=== PATIENT | male | born 1960 | race Caucasian/White ===

== ENCOUNTER 2017-07-24 18:57 | Observation (INO) ==
[2017-07-24] MEDS ORDERED: Aspirin 81 MG TAB.CHEW PO ONE (18:59)
--- NOTE | 2017-07-24 19:02 | Emergency Department Note ---
Disposition Clinical Impression: Unstable angina pectoris, Atypical chest pain Disposition: Admitted As Inpatient Condition: Fair General Adult HPI - General Chief complaint: ED Chest Pain Stated complaint: Chest Pain Time Seen by Provider: 07/24/17 18:59 - Related Data Allergies Allergy/AdvReac Type Severity Reaction Status Date / Time No Known Allergies Allergy Verified 07/24/17 18:58 Course Vital Signs Temperature 98.3 F 07/24/17 18:59 Pulse Rate 81 07/24/17 18:59 Respiratory Rate 18 07/24/17 18:59 Blood Pressure 136/84 07/24/17 18:59 O2 Sat by Pulse Oximetry 99 07/24/17 18:59 Temperature 97.4 F L 07/24/17 22:22 Pulse Rate 65 07/24/17 22:22 Respiratory Rate 12 07/24/17 22:22 Blood Pressure 126/83 07/24/17 22:22 O2 Sat by Pulse Oximetry 96 07/24/17 22:22 Oxygen Delivery Oxygen Delivery Room Air Medical Decision Making - Lab Data Result diagrams: 07/24/17 19:07 07/24/17 19:07 Lab Results 07/24/17 07/24/17 07/24/17 Range/Units 19:07 19:07 19:07 WBC 9.7 (4.3-11.1) K/mcL RBC 4.70 (4.19-5.50) M/mcL Hgb 12.9 (12.9-16.9) g/dL Hct 39.9 (37.5-50.1) % MCV 84.9 (83.0-100.0) fL MCH 27.4 L (28.0-33.3) pg MCHC 32.3 (31.6-35.5) g/dL RDW 13.4 (11.5-14.5) % Plt Count 291 (140-400) K/mcL MPV 10.1 (9.4-12.4) fL Immature Gran % 0.6 (0-4) % Seg Neutrophils % 59.8 % Lymphocytes % 23.8 % Monocytes % 10.4 % Eosinophils % 4.7 % Basophils % 0.7 % Neutrophils # 5.8 (1.6-8.9) K/mcL Lymphocytes # 2.3 (0.6-4.6) K/mcL Monocytes # 1.0 (0.0-1.3) K/mcL Eosinophils # 0.5 (0.0-0.6) K/mcL Basophils # 0.1 (0.0-0.2) K/mcL PT 9.4 (9.4-12.1) Seconds INR 0.9 APTT 27.7 (26.0-36.0) Seconds D-Dimer < 215 (0-500) ng/mLFEU Sodium 137 (136-145) mEq/L Potassium 3.7 (3.5-4.5) mEq/L Chloride 106 (98-109) mEq/L Carbon Dioxide 23 (19-29) mEq/L BUN 10 (8-26) mg/dL Creatinine 0.81 (0.72-1.25) mg/dL Est GFR ( Amer) > 60 (> 60) Est GFR (Non-Af Amer) > 60 (> 60) BUN/Creatinine Ratio 12 (6-26) Glucose 123 H (70-99) mg/dL Calculated Osmolality 284 (280-300) Calcium 8.8 (8.6-10.8) mg/dL Total Bilirubin 0.6 (0.2-1.2) mg/dL Direct Bilirubin 0.2 (0.0-0.5) mg/dL Indirect Bilirubin 0.4 (0.0-1.2) mg/dL AST 23 (5-34) Units/L ALT 45 (0-55) Units/L Alkaline Phosphatase 128 H (38-126) Units/L Troponin I (0-0.03) ng/mL Serum Total Protein 7.0 (6.0-8.3) g/dL Albumin 3.4 L (3.5-5.0) g/dL Globulin 3.6 H (2.4-3.5) g/dL Albumin/Globulin Ratio 0.9 L (1.1-2.2) 07/24/17 Range/Units 19:07 WBC (4.3-11.1) K/mcL RBC (4.19-5.50) M/mcL Hgb (12.9-16.9) g/dL Hct (37.5-50.1) % MCV (83.0-100.0) fL MCH (28.0-33.3) pg MCHC (31.6-35.5) g/dL RDW (11.5-14.5) % Plt Count (140-400) K/mcL MPV (9.4-12.4) fL Immature Gran % (0-4) % Seg Neutrophils % % Lymphocytes % % Monocytes % % Eosinophils % % Basophils % % Neutrophils # (1.6-8.9) K/mcL Lymphocytes # (0.6-4.6) K/mcL Monocytes # (0.0-1.3) K/mcL Eosinophils # (0.0-0.6) K/mcL Basophils # (0.0-0.2) K/mcL PT (9.4-12.1) Seconds INR APTT (26.0-36.0) Seconds D-Dimer (0-500) ng/mLFEU Sodium (136-145) mEq/L Potassium (3.5-4.5) mEq/L Chloride (98-109) mEq/L Carbon Dioxide (19-29) mEq/L BUN (8-26) mg/dL Creatinine (0.72-1.25) mg/dL Est GFR ( Amer) (> 60) Est GFR (Non-Af Amer) (> 60) BUN/Creatinine Ratio (6-26) Glucose (70-99) mg/dL Calculated Osmolality (280-300) Calcium (8.6-10.8) mg/dL Total Bilirubin (0.2-1.2) mg/dL Direct Bilirubin (0.0-0.5) mg/dL Indirect Bilirubin (0.0-1.2) mg/dL AST (5-34) Units/L ALT (0-55) Units/L Alkaline Phosphatase (38-126) Units/L Troponin I 0.01 (0-0.03) ng/mL Serum Total Protein (6.0-8.3) g/dL Albumin (3.5-5.0) g/dL Globulin (2.4-3.5) g/dL Albumin/Globulin Ratio (1.1-2.2) Attestation Statement - Attestation Attestation: I examined this patient and my medical decision-making was reviewed with the Resident Physician. I agree with the documented findings, disposition and treatment plan as described except to the extent set forth below. [id number] time provided [facility] complaining of hemoptysis and chest discomfort. History of recent failed stress test at [facility]. He does not take blood thinners. Appears in no acute distress on exam
--- NOTE | 2017-07-24 19:12 | Emergency Department Note ---
Disposition Clinical Impression: Unstable angina pectoris, Atypical chest pain Disposition: Admitted As Inpatient Condition: Fair Forms: ED Satisfaction Letter Time of Disposition: 20:35 Chest Pain HPI - General Chief Complaint: ED Chest Pain Stated Complaint: Chest Pain Time Seen by Provider: 07/24/17 18:59 Source: patient, EMS Mode of arrival: EMS Limitations: no limitations Vital Signs Reviewed: Yes Nursing Notes Reviewed: Yes - History of Present Illness HPI Narrative: 57-year-old male presents to the emergency department complaining of chest pain , hemoptysis. Patient states chest pain has been going on for about 3 days. Located in the left side of the chest and radiating down his left arm. He has been nauseous and vomiting he has vomited 3 times today. He said he was sweaty right chest pain started having his pain and noticed more increase in sweating. Patient states he did have one episode of hemoptysis earlier today which made him come in. He said it was blood noticeably coming out of his mouth when he was coughing. Since he is short of breath as normal but is mainly due to chest pain. History of the chest pain as being 5 out of 10 dull aching in the left side of the chest. Patient states this never happened before. Patient was seen and was you approximate 2-3 weeks ago for chest pain he was hospitalized for 10 days they did do a stress test and he failed it and it was toxic about doing catheterization but they decided not to due to financial concerns as he was recently incarcerated. Patient is now gone now and he is at the [facility]. Patient states he is having no other complaints including headache, blurry vision, neck pain, back pain, and changes in urination changes in bowel movements, abdominal pain, pain or tingling in the arms or legs outside the left arm, generalized weakness, fevers. Severity scale (1-10): 6 - Related Data Allergies Allergy/AdvReac Type Severity Reaction Status Date / Time No Known Allergies Allergy Verified 07/24/17 18:58 Review of Systems: 10 point review of systems done and negative unless otherwise stated in history of present illness. All systems ED: reviewed and negative except as stated. Review of Systems: As Per HPI Chest Pain PMH - Past Medical History Medical history: Reports: cancer, hypertension, TIA Psychiatric history: Reports: no psych history - Social History Smoking Status: Former smoker Alcohol use: Reports: none Drug use: Reports: none Physical Exam - General Limitations: no limitations General appearance: alert, in no apparent distress - Head Head exam: atraumatic, normocephalic, normal inspection - Eye Eye exam: Present: normal appearance, PERRL, EOMI - ENT ENT exam: normal exam, normal oropharynx, mucous membranes moist - Neck Neck exam: Present: normal inspection, full ROM, trachea midline - Chest Chest inspection: Present: normal inspection, symmetric chest wall rise. Absent : tenderness - Respiratory Respiratory exam: Present: normal lung sounds bilaterally. Absent: respiratory distress, wheezes, accessory muscle use - Cardiovascular Cardiovascular exam: Present: regular rate, normal rhythm, normal heart sounds - Abdominal Exam Abdominal exam: Present: soft, Non-Tender, normal bowel sounds. Absent: tenderness, distention, guarding, rebound, rigidity - Extremities Exam Extremities exam: Present: normal inspection, full ROM. Absent: tenderness, pedal edema - Expanded Lower Extremity Exam Neurovascular/Tendon exam: Present: normal capillary refill. Absent: pulse deficit, motor deficit, sensory deficit, tendon deficit - Back Exam Back exam: Present: normal inspection, full ROM. Absent: tenderness, CVA tenderness (R), CVA tenderness (L) - Neurological Exam Neurological exam: Present: alert, oriented X3 - Skin Skin exam: Present: warm Course Course Narrative: 57-year-old male presents to the emergency department for chest pain shortness of breath and hemoptysis. Patient did taking nitroglycerin before arriving at the elbow of his pain but is sent came back. We will get basic chest pain labs occluding CBC, BMP, troponin, PT/INR, PTT, d-dimer, chest x-ray, EKG. We will give him nitroglycerin and aspirin. Patient okay at this point. Most likely disposition will be admission for further evaluation. Vital Signs Temperature 98.3 F 07/24/17 18:59 Pulse Rate 81 07/24/17 18:59 Respiratory Rate 18 07/24/17 18:59 Blood Pressure 136/84 07/24/17 18:59 O2 Sat by Pulse Oximetry 99 07/24/17 18:59 Temperature 98.3 F 07/24/17 18:59 Pulse Rate 84 07/24/17 20:27 Respiratory Rate 18 07/24/17 20:27 Blood Pressure 135/87 07/24/17 20:27 O2 Sat by Pulse Oximetry 98 07/24/17 20:27 Oxygen Delivery Oxygen Delivery Room Air Chest Pain - MDM Narrative Medical decision making narrative: 57-year-old male presents to the emergency department complaining of chest pain as well as 1 episode hemoptysis. We did do chest x-ray which is normal. We also did a d-dimer that was normal. Troponin was also normal. There is no other abnormal lab abnormalities. EKG had no acute changes. Patient was seen and was you approximately 2 weeks ago with a negative stress today did not catheterize him. Patient only has hypertension as his risk factors. Patient otherwise having no complaints. Nitroglycerin did help with his chest pain but it did not go away. We did give him 325 aspirin. This most likely is unstable angina he needs to be admitted for further evaluation and for a cardiology consult. Patient to get this plan. Patient was admitted to the hospital as I spoke with Dr. Fairbanks who agreed to admit the patient to their service. Patient is admitted in stable condition. Chest X-Ray 07/24/17 18:59 IMPRESSION: No acute process. D/ / Geo Erickson MD / Geo Erickson MD Interpreting Provider: Geo Erickson MD - Medical Records Medical records reviewed: Yes I reviewed the patient's medical records. - Lab Data Lab results reviewed: Yes I reviewed the patient's lab results. Result diagrams: 07/24/17 19:07 07/24/17 19:07 Lab Results 07/24/17 07/24/17 07/24/17 Range/Units 19:07 19:07 19:07 WBC 9.7 (4.3-11.1) K/mcL RBC 4.70 (4.19-5.50) M/mcL Hgb 12.9 (12.9-16.9) g/dL Hct 39.9 (37.5-50.1) % MCV 84.9 (83.0-100.0) fL MCH 27.4 L (28.0-33.3) pg MCHC 32.3 (31.6-35.5) g/dL RDW 13.4 (11.5-14.5) % Plt Count 291 (140-400) K/mcL MPV 10.1 (9.4-12.4) fL Immature Gran % 0.6 (0-4) % Seg Neutrophils % 59.8 % Lymphocytes % 23.8 % Monocytes % 10.4 % Eosinophils % 4.7 % Basophils % 0.7 % Neutrophils # 5.8 (1.6-8.9) K/mcL Lymphocytes # 2.3 (0.6-4.6) K/mcL Monocytes # 1.0 (0.0-1.3) K/mcL Eosinophils # 0.5 (0.0-0.6) K/mcL Basophils # 0.1 (0.0-0.2) K/mcL PT 9.4 (9.4-12.1) Seconds INR 0.9 APTT 27.7 (26.0-36.0) Seconds D-Dimer < 215 (0-500) ng/mLFEU Sodium 137 (136-145) mEq/L Potassium 3.7 (3.5-4.5) mEq/L Chloride 106 (98-109) mEq/L Carbon Dioxide 23 (19-29) mEq/L BUN 10 (8-26) mg/dL Creatinine 0.81 (0.72-1.25) mg/dL Est GFR ( Amer) > 60 (> 60) Est GFR (Non-Af Amer) > 60 (> 60) BUN/Creatinine Ratio 12 (6-26) Glucose 123 H (70-99) mg/dL Calculated Osmolality 284 (280-300) Calcium 8.8 (8.6-10.8) mg/dL Total Bilirubin 0.6 (0.2-1.2) mg/dL Direct Bilirubin 0.2 (0.0-0.5) mg/dL Indirect Bilirubin 0.4 (0.0-1.2) mg/dL AST 23 (5-34) Units/L ALT 45 (0-55) Units/L Alkaline Phosphatase 128 H (38-126) Units/L Troponin I (0-0.03) ng/mL Serum Total Protein 7.0 (6.0-8.3) g/dL Albumin 3.4 L (3.5-5.0) g/dL Globulin 3.6 H (2.4-3.5) g/dL Albumin/Globulin Ratio 0.9 L (1.1-2.2) 07/24/ Range/Units 19:07 WBC (4.3-11.1) K/mcL RBC (4.19-5.50) M/mcL Hgb (12.9-16.9) g/dL Hct (37.5-50.1) % MCV (83.0-100.0) fL MCH (28.0-33.3) pg MCHC (31.6-35.5) g/dL RDW (11.5-14.5) % Plt Count (140-400) K/mcL MPV (9.4-12.4) fL Immature Gran % (0-4) % Seg Neutrophils % % Lymphocytes % % Monocytes % % Eosinophils % % Basophils % % Neutrophils # (1.6-8.9) K/mcL Lymphocytes # (0.6-4.6) K/mcL Monocytes # (0.0-1.3) K/mcL Eosinophils # (0.0-0.6) K/mcL Basophils # (0.0-0.2) K/mcL PT (9.4-12.1) Seconds INR APTT (26.0-36.0) Seconds D-Dimer (0-500) ng/mLFEU Sodium (136-145) mEq/L Potassium (3.5-4.5) mEq/L Chloride (98-109) mEq/L Carbon Dioxide (19-29) mEq/L BUN (8-26) mg/dL Creatinine (0.72-1.25) mg/dL Est GFR ( Amer) (> 60) Est GFR (Non-Af Amer) (> 60) BUN/Creatinine Ratio (6-26) Glucose (70-99) mg/dL Calculated Osmolality (280-300) Calcium (8.6-10.8) mg/dL Total Bilirubin (0.2-1.2) mg/dL Direct Bilirubin (0.0-0.5) mg/dL Indirect Bilirubin (0.0-1.2) mg/dL AST (5-34) Units/L ALT (0-55) Units/L Alkaline Phosphatase (38-126) Units/L Troponin I 0.01 (0-0.03) ng/mL Serum Total Protein (6.0-8.3) g/dL Albumin (3.5-5.0) g/dL Globulin (2.4-3.5) g/dL Albumin/Globulin Ratio (1.1-2.2) - Radiology Data Radiology results reviewed: Yes I reviewed the patient's radiology results. - EKG Data EKG attestation: Yes I reviewed and interpreted this EKG. EKG results narrative: EKG done at 1850 review myself and attending shows normal sinus rhythm at a rate of 86, ME interval 174, QRS 108, QTc [address] changes, no acute T-wave abnormalities, no signs of any heart strain or hypertrophy, no signs of any heart block, no signs of WPW/Brugada syndrome. Otherwise normal EKG. There is no old EKG to compare with. Heart Score - Score History: Highly Suspicious EKG: Non Specific repolarisation Disturbance Age: 45-65 Risk Factors: 1-2 risk factors Troponin: Less than normal limit HEART Score Total: 5
[2017-07-24] MEDS: Nitroglycerin 0.4 MG TAB.SUBL SL PRN ×3 (19:17→19:45)
[2017-07-24 19:18] LABS: Hematocrit 39.9 % (37.5-50.1); Hemoglobin 12.9 g/dL (12.9-16.9); Mean Corpuscular Hemoglobin 27.4 pg (28.0-33.3); Mean Corpuscular Volume 84.9 fL (83.0-100.0)
[2017-07-24 19:19] LABS: Basophils # 0.1 K/mcL (0.0-0.2); Basophils % 0.7 %; Eosinophils # 0.5 K/mcL (0.0-0.6); Eosinophils % 4.7 %; Immature Granulocytes % 0.6 % (0-4); Lymphocytes # 2.3 K/mcL (0.6-4.6); Lymphocytes % 23.8 %; Mean Corpuscular HGB Conc 32.3 g/dL (31.6-35.5); Mean Platelet Volume 10.1 fL (9.4-12.4); Monocytes % 10.4 %; Neutrophils # 5.8 K/mcL (1.6-8.9); Platelet Count 291 K/mcL (140-400); Red Cell Distribution Width 13.4 % (11.5-14.5); Segmented Neutrophils % 59.8 %
[2017-07-24 19:24] LABS: INR 0.9; Prothrombin Time 9.4 Seconds (9.4-12.1)
[2017-07-24 19:27] LABS: Activated Partial Thrombo Time 27.7 Seconds (26.0-36.0)
[2017-07-24 19:30] LABS: Alanine Aminotransferase 45 Units/L (0-55); Albumin 3.4 g/dL (3.5-5.0); Albumin/Globulin Ratio 0.9 (1.1-2.2); Alkaline Phosphatase 128 Units/L (38-126); Aspartate Amino Transferase 23 Units/L (5-34); BUN/Creatinine Ratio 12 (6-26); Bilirubin,Direct 0.2 mg/dL (0.0-0.5); Bilirubin,Indirect 0.4 mg/dL (0.0-1.2); Bilirubin,Total 0.6 mg/dL (0.2-1.2); Blood Urea Nitrogen 10 mg/dL (8-26); Calcium 8.8 mg/dL (8.6-10.8); Carbon Dioxide 23 mEq/L (19-29); Chloride 106 mEq/L (98-109); Globulin 3.6 g/dL (2.4-3.5); Glucose 123 mg/dL (70-99); Osmolality,Calculated 284 (280-300); Potassium 3.7 mEq/L (3.5-4.5); Sodium 137 mEq/L (136-145); eGFR For African Americans > 60 (> 60); eGFR For Non-African Americans > 60 (> 60)
[2017-07-24 19:54] LABS: D-Dimer < 215 ng/mLFEU (0-500)
[2017-07-24] MEDS ORDERED: Naloxone 0.4 MG/ML INJ IVP PRN (22:43)
--- NOTE | 2017-07-24 22:50 | Internal Med History&Physical ---
Date of Encounter: 07/24/17 Time of Encounter: 22:50 Assessment and Plan (1) Atypical chest pain Current visit: Yes Status: Acute uncertain whether this is cardiac . Could be pleurisy given hx But due to hx of reported abnormal stress testing at [facility], will have card eval for cardiac etiology, trend trop, TTE in the morning (2) Abnormal stress test Current visit: Yes Status: Acute uncertain context and nature of abnormal stress. Unable to retrieve records from [facility]. Card to assist in eval and follow up (3) Hemoptysis, unspecified Current visit: Yes Status: Acute appears last 3-4 days, trend Hb Check NC-CT chest to characterize Internal Medicine - H&P: HPI Chief complaint: CP History of present illness: Mr. Montana is a 57 year old male who presents with CP eval. He is coming in with 3 days hx of CP, sharp, along the left sternum, associated with left arm numbness, rate 7-8/10. Pain persistent for the last 3 days. CP has no relation with exertion. Today, he almost blacked out after coughing spell. On review, he has been incarcerated and was admitted to [facility] for chest pain in February that had abnormal stress test - a LHC was discussed but was reported to be held due to cost ?? while he is incarcerated ??. Review noted 3-4 days hx of coughing out lisa blood w/o clots. He woke up with blood all over pillow He quite smoking 14 years ago. EKG reviewed with rate 86, NSR. Incomplete RBBB on read questionable ?? XR/XR chest 1V portable IMPRESSION: No acute process. Past Med Surg Social Fam HX - Past Medical History Medical history: cancer, hypertension, TIA Psychiatric history: no psych history - Past Surgical History Surgical History: no surgical history - Social History Smoking Status: Former smoker Packs per day: 3 Smokeless Tobacco Status: No Alcohol use: none Drug use: none - Family History Mother Adopted: No Living Status: Hx Family Cardiac Disorders: Yes (open heart surgery) Hx Family Cancer: Yes (lung) Internal Medicine - H&P: Meds 3 Allergy/AdvReac Type Severity Reaction Status Date / Time No Known Allergies Allergy Verified 07/24/17 18:58 All Systems PM: A 10-system review of systems was performed and is negative for pertinent findings except as documented above in the HPI. Review of systems: ROS 14 point review of systems reviewed as best as possible given presentation. Pertinent positive or negative as per HPI or otherwise reviewed as negative - Constitutional Vitals: Temp Pulse Resp BP Pulse Ox 97.4 F L 65 12 126/83 96 07/24/17 22:22 07/24/17 22:22 07/24/17 22:22 07/24/17 22:22 07/24/17 22:22 Exam: General - AAO x 3 Psych - Appropriate affect/speech. No agitation Eyes - TRACY. Eye lids intact. No scleral icterus Heart - Sinus. RRR. S1 and S2 present. No added HS/murmurs appreciated. No elevated JVD appreciated. Lung - Adequate air entry b/l, No crackles/wheezes appreciated GI - Soft, non-tender. No hepatosplenomegaly/ascites. BS+ - No CVA/suprapubic tenderness or palpable bladder distension Skin - Intact. No rash/petechiae/ecchymosis. Warm extremities MSK - Joints with normal ROM. No joint swellings Internal Med - H&P Results - Labs CBC & Chem 7: 07/24/17 19:07 07/24/17 19:07
[2017-07-25 01:04] LABS: Hematocrit 38.1 % (37.5-50.1); Hemoglobin 12.5 g/dL (12.9-16.9)
[2017-07-25] MEDS ORDERED: Aspirin 81 MG TAB.CHEW PO SCH (09:00)
--- NOTE | 2017-07-25 10:37 | Cardiology Consult Note ---
Date of Encounter: 07/25/17 Time of Encounter: 10:34 Assessment and Plan (1) Atypical chest pain Current Visit: Yes Status: Acute Abnormal stress test at [facility] in January 2017, records pending. Pt reports chest pressure at 3 minutes of exercise stress test, test stopped, no interventions performed then at [facility], pt states he did not follow-up to appointment with Health Information Coder afterwards. Neg trops x2, no ST changes on ECG. Plan: due to patient history of abnormal stress test, recurrent anginal symptoms , risk factors of heavy smoking in past, family history, plan is for left heart catheterization. Patient understands and is agreeable to procedure. Pt currently NPO. (2) Hemoptysis, unspecified Current Visit: Yes Status: Acute CT chest negative for identified source of bleed. Primary team trending H&H, negative d-dimer. Will proceed with [facility]. Discussion w patient/family: The assessment and plan as outlined above was discussed with the patient and/or family members who expressed understanding and agreement. All questions were answered. Thank you for involving us in the care of your patient. Please call with any questions. History of Present Illness Consult date: 07/25/17 Requesting physician: Austin Fairbanks Consult reason: Chest pain, Hx Abnormal Stress test [facility] Chief complaint: Chest pain History of present illness: Mr. Les Montana, 57M, somewhat limited historian, presents to ED with 4 days of hemoptysis and sharp left sternal chest pain with reported left arm numbness. Chronicity of chest pain has been intermittent over past year, occurring at times at rest. PMH, HTN, former [id number] yr smoker quit 14 years ago , last alcohol use 30 years ago, reported abnormal stress test at [facility] January 2017. He states he had chest discomfort at 3 minutes during incline, plan was to follow-up outpatient at [facility], pt lost to follow-up. 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 Hemoptysis workup: CXR normal, CT chest negative for acute finding of bleed source, negative d-dimer. Cardiology consulted for further evaluation of chest pain; negative trops x2, ECG shows no ST changes. Family history: Father age 49, mother 63, both according to patient of heart disease, unknown age of diagnosis. Past Med Surg Social Fam HX - Past Medical History Medical history: cancer, hypertension, TIA Psychiatric history: no psych history - Past Surgical History Surgical History: no surgical history - Social History Smoking Status: Former smoker Packs per day: 3 Smokeless Tobacco Status: No Alcohol use: none Drug use: none - Family History Mother Adopted: No Living Status: Hx Family Cardiac Disorders: Yes (open heart surgery) Hx Family Cancer: Yes (lung) Medications and Allergies Aspirin [Lo-Dose Aspirin EC] 81 mg PO DAILY 07/25/17 [History] Citalopram [CeleXA] 20 mg PO DAILY 07/25/17 [History] Metoprolol [Lopressor] 50 mg PO BID 07/25/17 [History] Mirtazapine [Remeron] 15 mg PO HS 07/25/17 [History] Nitroglycerin [Nitrostat] 0.4 mg SL Q5M PRN 07/25/17 [History] Simvastatin [Zocor] 20 mg PO HS 07/25/17 [History] 3 Allergy/AdvReac Type Severity Reaction Status Date / Time No Known Allergies Allergy Verified 07/24/17 18:58 All Systems Review: A 10-system review of systems was performed and is negative for pertinent findings except as documented above in the HPI. Physical Examination Vital Signs, Last 4 Hours Temp Pulse Resp BP Pulse Ox 07/25/17 07:33 97.4 F L 66 18 132/77 95 General: Conversant HEENT: Atraumatic, Normocephaly Neck: Other (no JVD, no bruit on carotid ausc) Cardiac: Reg Rate and Rhythm, Normal S1 and S2 Lungs: No Wheeze, Rales, Rhonchi Neuro: Other (intact sensation and movement upper, lower extremities) Musculoskeletal: No Chest Wall Tenderness Extremities: No Clubbing, No Cyanosis, No Edema Results 07/25/17 00:56 07/24/17 19:07 Lab Results 07/25/17 07/25/17 07/25/17 00:56 00:56 06:24 Hgb 12.5 L Hct 38.1 Troponin I 0.00 0.00 Consult Discharge Plan - Plan Referrals: NONE,PCP [Primary Care Provider] -
[2017-07-25] MEDS: Nitroglycerin 0.4 MG TAB.SUBL SL PRN ×2 (10:54→10:59)
[2017-07-25] MEDS ORDERED: Heparin 1,000 UNITS/500 mL NS 500 ML ONE (15:01)
[2017-07-25] MEDS ORDERED: 0.9 % Sodium Chloride 1,000 ML ONE (15:01)
[2017-07-25] MEDS ORDERED: *HR* Heparin 10,000 UNIT/10 ML VIAL ONE (15:01)
[2017-07-25] MEDS ORDERED: Nitroglycerin 1,000 MCG/10 ML VIAL IV ONE (15:02)
--- NOTE | 2017-07-25 15:04 | Internal Med Progress Note ---
Date of Encounter: 07/25/17 Time of Encounter: 10:30 - Assessment and plan (1) CAD (coronary artery disease) Current Visit: Yes Status: Acute Assessment and plan: Patient reports abnormal stress test at [facility] 02/2017. Now with chest pain that occurs at rest. Evaluated by cardiology whose plane left heart catheterization. Continue ASA, 80 morphine for pain. TTE pending. Further management pending her course. Cardiology following. Qualifiers: Coronary Disease-Associated Artery/Lesion type: ken[place]ze artery [place] vs. transplanted heart: kenaitze heart Associated angina: with unstable angina Qualified Code(s): I25.110 - Atherosclerotic heart disease of kenaitze coronary artery with unstable angina pectoris (2) COPD (chronic obstructive pulmonary disease) Current Visit: Yes Status: Acute Assessment and plan: per hx. no evidence of exacerbation. Add PRN nebulizers. Qualifiers: COPD type: emphysema Emphysema type: unspecified Qualified Code(s): J43.9 - Emphysema, unspecified (3) Hemoptysis, unspecified Current Visit: Yes Status: Acute Assessment and plan: Patient reports significant hemoptysis for the last 2-3 weeks. Not visualized by staff Hgb 12.5. We will need to further investigate, consult pulmonology if needed. (4) Aortic aneurysm Current Visit: Yes Status: Acute Assessment and plan: Chest CTA with 4 cm mild ascending aortic aneurysm, no evidence of dissection. Asymptomatic. Will need to follow up outpatient with repeat imaging. Qualifiers: Aortic location: abdominal aorta Presence of rupture: without rupture Qualified Code(s): I71.4 - Abdominal aortic aneurysm, without rupture - Time Spent With Patient less than 15 minutes - Subjective Interval history: Seen and examined at bedside. Patient is new to me, information obtained from chart review and patient report. Patient still with subtle left chest pain that radiates to left arm. Intermittent shortness of breath. He reports hemoptysis for the past 2-3 weeks, former smoker. Chest cardiology is proceeding with left heart catheterization later on today. - Constitutional Vitals: Temp Pulse Resp BP Pulse Ox 97.9 F 62 18 122/79 96 07/25/17 11:48 07/25/17 11:48 07/25/17 11:48 07/25/17 11:48 07/25/17 11:48 General appearance: Present: A&O X 3, no acute distress - Head Head exam: Present: atraumatic, normocephalic - Eye Eye exam: Present: PERRL, conjuntiva pink, sclera anicteric Pupils: Present: PERRL - Neck Neck exam general surgery: Present: supple, trachea midline. Absent: lymphadenopathy - Respiratory Respiratory exam: Present: CTAB. Absent: accessory muscle use, rales, rhonchi, wheezes - Cardiovascular Cardiovascular exam: Present: RRR, +S1, +S2. Absent: diastolic murmur, gallop, rubs, systolic murmur - GI/Abdominal GI/Abdominal exam: Present: normal bowel sounds, soft, no peritoneal signs. Absent: distended, tenderness - Extremities Exam Extremities exam: Present: warm, radial pulses palpable and symmetrical. Absent : calf tenderness, cyanotic, pedal edema - Neurological Exam Neurological exam: Present: CN II-XII intact, oriented X3, no focal deficits. Absent: pronater drift, facial droop, speech deficit - Skin Skin exam: Present: dry, intact Internal Medicine: Result - Labs CBC & Chem 7: 07/25/17 00:56 07/24/17 19:07 Labs: Short CBC 07/25/17 Range/Units 00:56 Hgb 12.5 L (12.9-16.9) g/dL Hct 38.1 (37.5-50.1) % Cardiac Enzymes 07/25/17 07/25/17 07/25/17 Range/Units 00:56 06:24 12:52 Troponin I 0.00 0.00 0.00 (0-0.03) ng/mL - ABG Interpretation ABG results: PT/INR, D-dimer PT 9.4 Seconds (9.4-12.1) 07/24/17 19:07 D-Dimer < 215 ng/mLFEU (0-500) 07/24/17 19:07 - Impressions Impressions Chest CT 07/25/17 08:30 IMPRESSION: 1. No CT explanation for the patient's presenting hemoptysis. 2. Mild pulmonary emphysema. 3. Indeterminate bilateral pulmonary nodules measuring up to 4 mm. Refer to Fleischner criteria follow-up. 4. Ascending aortic aneurysm up to 4.3 cm. RECOMMENDATIONS: Fleischner Society guidelines for follow-up and management of incidentally detected pulmonary nodules: Multiple Solid Nodules: Nodule size less than 6 mm In a low-risk patient, no routine follow-up. In a high-risk patient, optional CT at 12 months. - Low risk patients include individuals with minimal or absent history of smoking and other known risk factors. - High risk patients include individuals with a history or smoking or known risk factors. Radiology 2017 http://pubs.rsna.org/doi/full/10.1148/radiol.[email or web address] D/ / 07/25/2017 09:04:17 Irving Lockett MD / emil Interpreting Provider: Irving Lockett MD Chest CTA 07/25/17 10:51 IMPRESSION: No evidence of pulmonary embolism or acute pulmonary abnormality. Mild COPD Mild ascending aortic aneurysm measuring 4 cm 4 mm nodule within the left lower lobe involving the major fissure RECOMMENDATIONS: Fleischner Society guidelines for follow-up and management of incidentally detected pulmonary nodules: Single Solid Nodule: Nodule size less than 6 mm In a low-risk patient, no routine follow-up. In a high-risk patient, optional CT at 12 months. Nodule size equals 6-8 mm In a low-risk patient, CT at 6-12 months, then consider CT at 18-24 months. In a high-risk patient, CT at 6-12 months, then CT at 18-24 months. Nodule size greater than 8 mm In a low-risk patient, consider CT, PET/CT, or tissue sampling at 3 months. In a high-risk patient, consider CT, PET/CT, or tissue sampling at 3 months. Multiple Solid Nodules: Nodule size less than 6 mm In a low-risk patient, no routine follow-up. In a high-risk patient, optional CT at 12 months. Nodule size equals 6-8 mm In a low-risk patient, CT at 3-6 months, then consider CT at 18-24 months. In a high-risk patient, CT at 3-6 months, then CT at 18-24 months. Nodule size greater than 8 mm In a low-risk patient, CT at 3-6 months, then consider CT at 18-24 months. In a high-risk patient, CT at 3-6 months, then CT at 18-24 months. - Low risk patients include individuals with minimal or absent history of smoking and other known risk factors. - High risk patients include individuals with a history or smoking or known risk factors. Radiology 2017 http://pubs.rsna.org/doi/full/10.1148/radiol.0236071092 D/ / Yonas Block MD / Yonas Block MD Interpreting Provider: Yonas Block MD Echocardiogram 07/25/17 22:49 Impressions: LVEF 60%. Mild left ventricular diastolic dysfunction. Normal right ventricular structure and function. No significant valvular dysfunction. No pulmonary hypertension. Left Ventricular Wall Motion: Rest Echo Findings All wall segments showed normal motion. Findings: Study Quality * Technically adequate exam. ECG Findings * Normal sinus rhythm. Left Ventricle * LVEF 60%. * Normal LV chamber size, wall thickness and function. * Mild left ventricular diastolic dysfunction. Right Ventricle * Normal right ventricular structure and function. Left Atrium * Normal left atrial size. Right Atrium * Normal right atrial size. Aortic Valve * No aortic regurgitation. * No aortic stenosis. * Trileaflet aortic valve. Mitral Valve * Normal mitral valve structure. * No mitral stenosis. * Trace mitral regurgitation. Tricuspid Valve * Tricuspid valve not well visualized. * Trace tricuspid regurgitation. * Estimated RA pressure is 3 mmHg. * Estimated RVSP is 25 mmHg. * No pulmonary hypertension. Pulmonic Valve * Pulmonic valve is not well visualized. * No pulmonic stenosis. * No pulmonic regurgitation. Pulmonary Artery * Pulmonary artery not well visualized. Aorta * Normally sized aortic root. Pericardium * There is no pericardial effusion present. Interatrial Septum * No evidence of PFO by color Doppler. IVC * Normal IVC dimensions and inspiratory collapse. Consult Discharge Plan - Plan Referrals: NONE,PCP [Primary Care Provider] -
[2017-07-25] MEDS ORDERED: *HR* Midazolam HCl 5 MG/5 ML VIAL IVP ONE (15:22)
--- NOTE | 2017-07-25 15:24 | Pre-Sedation Evaluation ---
Pre-sedation evaluation - Pre-sedation checklist Date of procedure: 07/25/17 Procedure: [facility] Recent Vitals: Last Vital Signs Temp 97.9 F 07/25/17 11:48 Pulse 62 07/25/17 11:48 Resp 18 07/25/17 11:48 BP 122/79 07/25/17 11:48 Pulse Ox 96 07/25/17 11:48 H&P (including ROS) documented in medical record: Yes Previous reaction to sedatives/anesthetics: No Dietary Status: NPO after Midnight Airway Assessment: Patient can open mouth completely, TMJ function normal Dentition: No loose teeth or bridges Possible difficult airway: No ASA Classification *see protocol: CLASS III-Severe systemic disease Plan of Care: Pt appropriate candidate for procedure/moderate/conscious sedation , Risks/benefits of procedure/sedation discussed w/ patient/family, If not NPO; Risk of intake outweiged by necessity to perform procedure
[2017-07-25] MEDS ORDERED: 0.9 % Sodium Chloride 1,000 ML IVC SCH (16:00)
--- NOTE | 2017-07-25 16:16 | Invasive Diagnostic Lab Proc ---
Name: Les [place] Date of Study: 07/25/2017 Date: 1960 Ht: 71.0in Medical Record#: [id number] Age: 57 Wt: 196.21lb Gender: Male BSA: 2.09 Order #: [id number] BMI: 27.38 Physicians Procedure Physician: Lacho Odonnell DO Referring MD: Referring MD: Staff Name Position Time In Virgen Miller RN Neuropsychology Service Director 03:14 PM Steven Devine RT (R) Monitor 03:14 PM Jesús Griffith RN Scrub 03:14 PM Indications Indication Abnormal Test - Stress Procedures Performed Procedure L HRT ARTERY/VENTRICLE ANGIO Pre-Procedure Checklist Informed consent is complete signed and on chart. H&P is on chart. ID band is on and ID verified with patient. Patient NPO for procedure The procedure was described for the patient and questions were answered. Blood Pressure: 135/86 ECG is on chart. Rhythm: NSR Plan of Care Patient will tolerate the procedure without complications. Adequate level of comfort will be maintained. Hemodynamics will remain stable Patient will recover from procedure without complications. Respiratory function will be maintained. Cardiac rhythm will remain stable. Patient temperature will be maintained. Patient and/or family have verbalized understanding of the procedure. Patient Education Chief Complaint/Reason for Test: Cardiac Cath Developmental Category: Adult (18-64 years) Developmentally Appropriate for Age: Yes Learning Barriers: None Education Needs: Procedure Education Method: Verbal Information Taught: Cardiac Cath Educational Evaluation: Able to repeat information Intravenous Access Time IV Size Location DC'd Fluid/Drip Rate Units RN 03:18 PM 20g 1 1/" Patent On Arrival Lt Antecubital 0.9NaCl 25 ml/hr Virgen Miller RN Allergies No Known Allergies Vital Signs Time BP (mmHg) HR (bpm) O2 Sat. RR (bpm) LOC 03:17 PM 135 / 86 69 100 % 20 5 = Fully awake and oriented or at pre-proc level 03:18 PM / % 5 = Fully awake and oriented or at pre-proc level 03:33 PM / % 5 = Fully awake and oriented or at pre-proc level 03:48 PM / % 5 = Fully awake and oriented or at pre-proc level 03:26 PM 135 / 86 68 100 % 17 03:31 PM 127 / 93 75 99 % 15 03:36 PM 129 / 88 74 99 % 19 03:41 PM 96 / 68 73 99 % 19 03:47 PM 120 / 82 72 99 % 14 03:51 PM 120 / 92 74 100 % 19 03:56 PM 120 / 92 72 100 % 22 04:01 PM 126 / 84 72 100 % 16 04:06 PM 116 / 86 81 100 % 8 Procedural Medications Time Medication Dose Units Method Given By 03:27 PM Versed 2 mg Intravenous Virgen Miller RN 03:29 PM Oxygen 2 L/min nasal cannula Virgen Miller RN 03:34 PM Versed 1 mg Intravenous Virgen Miller RN 03:37 PM Lidocaine 2% 9 ml Subcutaneous Lacho Odonnell DO ASA Classification: CLASS III- Severe systemic disease (i.e. prior AMI, diabetes with vascular complications, morbid obesity) Funmilayo Score Preprocedure Postprocedure Activity 2- Moves 4 extremities sustained head lift Activity Circulation 2- SBP +/= 20 points of pre-anesthetic level Circulation Consciousness 2- Awake and alert oriented x 3 Consciousness O2 Saturation 2- Able to maintain O2 satruation of 92% on room air O2 Saturation Respiratory 2- Able to deep breathe and cough well Respiratory Total Score 10 Total Score Contrast Agent: Isovue Diagnostic Contrast: 40 ml Total Contrast: 40 ml Fluoro Dose: 167 mGy Procedure Log Time Note Enter By 03:14 PM Patient charges- Angio tray pack, Navilyst 3mm J, Pulse Oximetry and ACIST tubing and transducer [email or web address] 03:14 PM Virgen Miller RN Position: Neuropsychology Service Director Time in: 15:14 [email or web address] 03:14 PM Steven Devine RT (R) Position: Monitor Time in: 15:14 [email or web address] 03:14 PM Jesús Griffith RN Position: Scrub Time in: 15:14 [email or web address] 03:17 PM Pt arrived to medical lab tech instructor 2 at 15:17 [email or web address] 03:17 PM Time: 15:17 Patient comfortable and pain free: Yes [email or web address] 03:18 PM Time: 15:17LOC: 5 = Fully awake and oriented or at pre-proc level [email or web address] 03:18 PM CathStat 03:20 PM Physician arrived 15:20 [email or web address] 03:20 PM Meet and greet completed [email or web address] 03:20 PM Sign in performed according to hospital policy. [email or web address] 03:20 PM Procedure start 15:20 [email or web address] 03:20 PM ASA Class CLASS III- Severe systemic disease (i.e. prior AMI, diabetes with vascular complications, morbid obesity) 03:21 PM Case Delayed No 2 03:26 PM Vitals capture started with the following parameters, Patient=Adult, Interval=5 min, Initial Vjkksamk=621 mmHg, Deflation Rate=5 mmHg, Cuff placed on Right Arm 03:26 PM Recorded ECG: HR=69 Condition=Condition 1 03:26 PM HR=68 bpm, MQQC=948/86 mmhg, EuA4=282.0 %, Resp=17 B/min 03:28 PM Time: 15:27 Versed 2 mg Intravenous Given by Virgen Miller RN 03:29 PM Hair removed from procedure site in procedure lab using clippers. Bilateral groin prepped with Chloraprep by Steven Devine (R), safety strap applied then patient was draped. Skin intact. 03:29 PM Time: 15:29 Oxygen on at 2 L/min per nasal cannula by Virgen Miller RN 03:31 PM HR=75 bpm, ENGD=591/93 mmhg, SpO2=99.0 %, Resp=15 B/min, Comment=nsr 03:33 PM Time: 15:18LOC: 5 = Fully awake and oriented or at pre-proc level 03:33 PM Time: 15:17 Patient comfortable and pain free: Yes 03:35 PM Time: 15:34 Versed 1 mg Intravenous Given by Virgen Miller RN 03:35 PM Pressure channel 1 zeroed. 03:36 PM HR=74 bpm, OLVE=353/88 mmhg, SpO2=99.0 %, Resp=19 B/min, Comment=nsr 03:37 PM Time out performed according to hospital policy 03:37 PM Time: 15:37 9 ml Lidocaine 2% to right groin Subcutaneous Given by Lacho Odonnell DO 03:38 PM Micro-Introducer Kit utilized for sheath placement [email or web address] 03:40 PM Access obtained by percutaneous puncture. 6Fr 10cm Terumo [place] sheath placed in right Femoral artery. [id number] [email or web address] 03:40 PM 0.035 145cm Navilyst 3mmJ wire [id number] [email or web address] 03:40 PM 5Fr FR 4 [facility] PM Catheter selectively placed in left ventricle hand injected [email or web address] 03:41 PM Recorded Pressure: LV, HR=86, Condition=Condition 1 (Left Ventricle) LV 20/2/2 03:41 PM Recorded Pressure: LV, Ao, HR=67, Condition=Condition 1 (Left Ventricle) LV 81/1/16, (Aorta) Ao 98/22/62 03:41 PM HR=73 bpm, NIBP=96/68 mmhg, SpO2=99.0 %, Resp=19 B/min 03:42 PM Recorded Pressure: Ao, HR=73, Condition=Condition 1 (Aorta) Ao 102/65/82 03:42 PM RCA angiography performed in multiple views. [email or web address] 03:43 PM Catheter removed [email or web address] 03:43 PM 5Fr FL 4 catheter inserted over the wire [facility] [email or web address] 03:44 PM LCA angiography performed in multiple views. [email or web address] 03:44 PM Recorded Pressure: Ao, HR=72, Condition=Condition 1 (Aorta) Ao 113/74/92 03:44 PM Coronary Dominance: right [email or web address] 03:46 PM Physician reviewing films [email or web address] 03:46 PM Recorded Pressure: Ao, HR=71, Condition=Condition 1 (Aorta) Ao 125/75/97 03:46 PM Lesion found in Mid LAD. Pre Stenosis: 40 Pre ELYSE Flow: [email or web address] 03:46 PM Mid/Distal Left Anterior Descending Coronary Artery and diagonal branches with 40% stenosis. If graft is supplying this area, 0 % stenosis [email or web address] 03:47 PM Catheter removed [email or web address] 03:47 PM HR=72 bpm, MRVV=911/82 mmhg, SpO2=99.0 %, Resp=14 B/min, Comment=nsr 03:48 PM Procedure completed at 15:48 [email or web address] 03:48 PM Time: 15:33LOC: 5 = Fully awake and oriented or at pre-proc level [email or web address] 03:48 PM Time: 15:33 Patient comfortable and pain free: Yes [email or web address] 03:48 PM Sign out completed: Radiation Dose 166.62 mGy Fluoro Time: 1.5 Isovue 370 - 200ml contrast 40 ml given by Lacho Odonnell DO. Complications: NoneCardiac Rehab Consult needed: NoConfirmed administered medications: Yes [email or web address] 03:48 PM Estimated Blood Loss: minimal [email or web address] 03:48 PM Post ECG NSR [email or web address] 03:48 PM Post Blood Pressure 120/82 [email or web address] 03:49 PM Information taught Cardiac Cath [email or web address] 03:49 PM Education needs Procedure, Plan of Care, and Disease Process [email or web address] 03:49 PM Learning barriers :Sedated [email or web address] 03:49 PM Education Methods Verbal [email or web address] 03:49 PM Education evaluation Needs further instruction [email or web address] 03:49 PM Delay to floor No [email or web address] 03:49 PM No Family [email or web address] 03:49 PM Complications: None [email or web address] 03:50 PM Fluoro Time: 1.5 [email or web address] 03:50 PM Isovue 370 - 200ml contrast 40 ml given by Lacho Odonnell DO. [email or web address] 03:50 PM Radiation Dose 166.62 mGy [email or web address] 03:51 PM Arterial sheath pulled using manual compression and V+ Pad by Virgen Miller RN [email or web address] 03:51 PM HR=74 bpm, HSAW=070/92 mmhg, QkE3=020.0 %, Resp=19 B/min, Comment=nsr 03:54 PM Report given to debbie SARMIENTO Pt taken to 3B Room #39. 15:54 [email or web address] 03:56 PM HR=72 bpm, RXFR=727/92 mmhg, OhR2=396.0 %, Resp=22 B/min, Comment=nsr 04:01 PM HR=72 bpm, MPRB=333/84 mmhg, GrM0=310.0 %, Resp=16 B/min, Comment=nsr 04:03 PM Time: 15:48 Patient comfortable and pain free: Yes [email or web address] 04:03 PM Time: 15:48LOC: 5 = Fully awake and oriented or at pre-proc level [email or web address] 04:04 PM Site status No bleeding/hematoma - Rt Groin as reported by Virgen Miller RN at 16:04 [email or web address] 04:04 PM Opsite applied [email or web address] 04:04 PM manual pressure held for 15 mins. virgen drakeilsonMaria De Jesus 04:05 PM 16:05 Post Pulses Bilateral DP & PT 2+ [email or web address] 04:06 PM HR=81 bpm, OJZR=030/86 mmhg, NuZ0=297.0 %, Resp=8 B/min 04:07 PM Vitals capture stopped. 04:08 PM Patient out of room: 16:08 [email or web address] Complications Complication None None Hemodynamics Pressures Site Systolic/A Wave Diastolic/V Wave Mean LV 20 2 2 LV 81 1 16 AO 98 22 62 AO 102 65 82 AO 113 74 92 AO 125 75 97 Post Procedure Information Blood Pressure: 120/82 mmHg Rhythm: NSR Post procedural instructions were given Site Checks Time Location Status Staff Sheath In? Note 04:04 PM Rt Groin No bleeding/hematoma Virgen Miller RN Pulses Time Site Pre-Procedure Post-Procedure Note 07/25/2017 3:18:00 PM Bilateral DP & PT 2+ 07/25/2017 3:18:00 PM Bilateral radial 2+ 4:05:00 PM Bilateral DP & PT 2+ Updated by Steven Devine RT (R) on 07/25/2017 4:08:56 PM Steven Devine RT electronically signed on 07/25/2017 4:09:20 PM with status of Final
--- NOTE | 2017-07-25 16:31 | Electrocardiograph Report ---
[place] [id number] Test Date: 2017-07-24 Pat Name: Les Montana Department: 103 Room: 3B39 Gender: M Media Relations Coordinator: MELODY : 1960 Requested By: Dagoberto Tate Order Number: [id number] Reading MD: Tonia Cabrera Measurements Intervals [place] Rate: 86 P: 58 [place]: 174 QRS: -20 QRSD: 108 T: 44 QT: 369 QTc: 412 Interpretive Statements SINUS RHYTHM INCOMPLETE RIGHT BUNDLE BRANCH BLOCK Electronically Signed On 07-25-2017 16:30:10 EST by Tonia Cabrera
[2017-07-25] MEDS: Aspirin Enteric Coated 81 MG Tablet PO SCH (17:04)
[2017-07-26 06:10] LABS: Hematocrit 41.2 % (37.5-50.1); Hemoglobin 13.5 g/dL (12.9-16.9)
[2017-07-26 06:11] LABS: Hematocrit 40.8 % (37.5-50.1); Hemoglobin 13.2 g/dL (12.9-16.9); Mean Corpuscular HGB Conc 32.4 g/dL (31.6-35.5); Mean Corpuscular Hemoglobin 27.5 pg (28.0-33.3); Mean Platelet Volume 10.2 fL (9.4-12.4); Platelet Count 282 K/mcL (140-400); Red Cell Distribution Width 13.8 % (11.5-14.5)
[2017-07-26 06:20] LABS: BUN/Creatinine Ratio 19 (6-26); Blood Urea Nitrogen 13 mg/dL (8-26); Calcium 8.4 mg/dL (8.6-10.8); Carbon Dioxide 23 mEq/L (19-29); Chloride 107 mEq/L (98-109); Glucose 97 mg/dL (70-99); Osmolality,Calculated 286 (280-300); Potassium 4.6 mEq/L (3.5-4.5); Sodium 138 mEq/L (136-145); eGFR For African Americans > 60 (> 60); eGFR For Non-African Americans > 60 (> 60)
--- NOTE | 2017-07-26 07:02 | Pulmonology Consult Note ---
<Kavon Quispe - Last Filed: 07/26/17 11:55> Date of Encounter: 07/26/17 Time of Encounter: 06:51 Assessment and Plan (1) Hemoptysis, unspecified Status: Deleted Patient noted 3-4 days hx of coughing out lisa blood w/o clots. Pulmonology was consulted for further evaluation of lung nodule with hemoptysis. Hemoptysis workup revealed CXR normal, CT chest negative for acute finding of bleed source, and negative d-dimer. Cardiology recommend continued aspirin, TTE, and LCH NO active hemptysis and patient is eager to go home Anticipate outpatient follow up (2) Lung nodule seen on imaging study Status: Acute Indeterminate bilateral pulmonary nodules measuring up to 4 mm. Fleischner criteria follow-up in a high-risk patient, optional CT at 12 months. (3) Former heavy cigarette smoker (20-39 per day) Status: Acute History of Present Illness Consult date: 07/25/17 Requesting physician: Carri Mitchell Reason for consult: other (Lung nodule with hemoptysis; former smoker) Chief complaint: CP History of present illness: Mr. Montana is a 57 year old male with a PMH of hypertension, TIA, and quit smoking 14 years ago after smoking 3ppd x25 years who presented c/o 4 days of coughing out lisa blood w/o clots hemoptysis and sharp left sternal persistent 7-8/10 chest pain along the left sternum associated with left arm numbness. He woke up with blood all over pillow but has not been able to give a sputum sample since arrival. Of note, he has been incarcerated but denies history of TB , night sweats, weigh loss, or recent illness. Pulmonology was consulted for further evaluation of lung nodule with hemoptysis. Hemoptysis workup revealed CXR normal, CT chest negative for acute finding of bleed source, and negative d- dimer. Past Med Surg Social Fam HX - Past Medical History Medical history: cancer, hypertension, TIA Psychiatric history: no psych history - Past Surgical History Surgical History: no surgical history - Social History Smoking Status: Former smoker Packs per day: 3 Smokeless Tobacco Status: No Alcohol use: none Drug use: none - Family History Mother Adopted: No Living Status: Hx Family Cardiac Disorders: Yes (open heart surgery) Hx Family Cancer: Yes (lung) Medications and Allergies Aspirin [Lo-Dose Aspirin EC] 81 mg PO DAILY 07/25/17 [History] Citalopram [CeleXA] 20 mg PO DAILY 07/25/17 [History] Metoprolol [Lopressor] 50 mg PO BID 07/25/17 [History] Mirtazapine [Remeron] 15 mg PO HS 07/25/17 [History] Nitroglycerin [Nitrostat] 0.4 mg SL Q5M PRN 07/25/17 [History] Simvastatin [Zocor] 20 mg PO HS 07/25/17 [History] 3 Allergy/AdvReac Type Severity Reaction Status Date / Time No Known Allergies Allergy Verified 07/24/17 18:58 All Systems: A 10-system review of systems was performed and is negative for pertinent findings except as documented above in the HPI. - Constitutional Constitutional: no chills, no fever(s), no weight gain, no weight loss - EENT Nose, mouth and throat: sore throat, no nasal congestion - Cardiovascular Cardiovascular: chest pain, dyspnea, no palpitations - Respiratory Respiratory: cough, dyspnea, hemoptysis, wheezing, chest congestion, no excessive phlegm production - Gastrointestinal Gastrointestinal: no diarrhea, no nausea, no vomiting - Genitourinary Genitourinary: no dysuria, no urinary frequency - Musculoskeletal Musculoskeletal: no weakness, no back pain - Neurological Neurological: numbness, no weakness - Psychiatric Psychiatric: no anxiety, no depression Physical Examination Vital Signs: Vital Signs, Last 4 Hours Temp Pulse Resp BP Pulse Ox 07/26/17 02:56 98.3 F 75 16 108/57 96 General appearance: no acute distress Eyes: nonicteric ENT: oropharynx moist Neck: supple Effort: normal Inspection: normal Auscultation: bilateral: clear Percussion: bilateral: not dull Tactile fremitus: bilateral: normal Cardiovascular: regular rate and rhythm Gastrointestinal: normoactive bowel sounds, non-distended Integumentary: normal Extremities: no cyanosis, no edema, no clubbing Musculoskeletal: no deformities, ROM normal normal mental status, non-focal exam mood appropriate, affect normal Results - Laboratory Findings CBC and BMP: 07/26/17 05:38 07/26/17 05:38 PT/INR, D-dimer PT 9.4 Seconds (9.4-12.1) 07/24/17 19:07 D-Dimer < 215 ng/mLFEU (0-500) 07/24/17 19:07 Abnormal lab findings: Abnormal lab results MCH 27.5 pg (28.0-33.3) L 07/26/17 05:38 Potassium 4.6 mEq/L (3.5-4.5) H 07/26/17 05:38 Creatinine 0.70 mg/dL (0.72-1.25) L 07/26/17 05:38 Calcium 8.4 mg/dL (8.6-10.8) L 07/26/17 05:38 Alkaline Phosphatase 128 Units/L (38-126) H 07/24/17 19:07 Albumin 3.4 g/dL (3.5-5.0) L 07/24/17 19:07 Globulin 3.6 g/dL (2.4-3.5) H 07/24/17 19:07 Albumin/Globulin Ratio 0.9 (1.1-2.2) L 07/24/17 19:07 - Diagnostic Findings Chest x-ray: report reviewed, image reviewed CT scan - chest: report reviewed, image reviewed - Clinical Findings Intake & Output: Intake & Output 07/25/17 07/25/17 07/26/17 15:59 23:59 07:59 Intake Total 240 / 240 Output Total 450 / 450 300 / 300 Balance -450 / -450 -60 / -60 Weight 88.768 kg Consult Discharge Plan - Plan Instructions: Coronary Artery Disease (DC), Abdominal Aortic Aneurysm (DC), Acute Hemoptysis (DC), Pulmonary Nodules (DC) Additional Instructions: A chest CT was done that showed a 4mm lung nodule, you will need to have a repeat chest CT within 3-6 months and follow-up with Pulmonology A chest CT showed a 4cm abdominal aortic aneurysm. You will need to follow-up with Cardiology for further management/monitoring If you do not hear from Cardiology or Pulmonology within 2 weeks, please call their offices to make an appt RISK FACTORS: STOP SMOKING: If you smoke, STOP. Smoking or tobacco use significantly increases your risk of heart disease because nicotine causes the arteries to narrow or constrict. It also causes fats to stick to the artery. Your chances of having a heart attack are greatly increased if you continue to smoke. For more information, call the education line for smoking cessation 5-077-OEGWFXN EAT A LOW FAT/CHOLESTEROL/SODIUM DIET: This diet may help reduce your chances of having a heart attack. LIFTING: Avoid lifting anything more than 10 pounds for 5-7 days Prior to straining, laughing, sneezing and/or coughing, apply manual pressure directly over insertion site. ACTIVITY: You may walk or climb stairs as tolerated You can resume sexual activity as tolerated In general, you are encouraged to engage in a minimum of 30 minutes or more of moderate intensity physical activity, such as brisk walking, daily or at least 3 -4 times weekly BATHING Do not submerge the site into water (bath tub, hot tub, swimming pool) for 1 week. This can be a source for infection into the blood stream. You may shower after 24 hours SITE CARE: After 24 hours, you may remove the dressing and leave the site open to air. Keep the site clean and dry. Clean gently and pat dry. You can expect bruising and tenderness that gradually resolve within a week or two. Return to work as instructed per your physician Resume driving as instructed per physician Keep all scheduled follow up appointments Resume medications as instructed IMPORTANT: If prescribed a Platelet Aggregation Inhibitor such as, Plavix, Brilinta or Effient: Duration of therapy is minimum one year These medications are often used in combination with Aspirin in prevention of future heart attacks Never discontinue unless consult with your Instructional Aide STROKE (CVA) Risk factors for a stroke are: Age, cigarette smoking, diabetes, excessive alcohol consumption, family history, high blood pressure, overweight, physical inactivity, prior stroke, heart attack, diagnosis of carotid artery stenosis or other artery disease. Warning signs: Sudden numbness or weakness of the face, arm or leg; especially on one side of the body, sudden confusion, trouble speaking or understanding, sudden trouble seeing in one or both eyes, sudden trouble walking, dizziness, loss of balance or coordination, sudden severe headache with no cause. Call 911 or go to the Emergency Room. CONGESTIVE HEART FAILURE: If you have been diagnosed with Congestive Heart Failure (CHF) and your symptoms return, make an appointment with your physician Weigh yourself daily. Notify your physician if you have a weight gain of two or more pounds in one day or five or more pounds in one week. If you experience any difficulty breathing, please call 911 BLEEDING: Although the risk of bleeding is minimal, it can happen. If you have any bleeding from the site, apply firm pressure above the puncture site for 10-15 minutes. If the bleeding does not stop, continue manual pressure and call 911 Contact your physician if: You develop a fever greater than 101 degrees Fahrenheit Your site becomes reddened or has any drainage You have an increase in pain or burning at the site or if a large knot forms at the site. If you experience chest pain, shortness of breath, dizziness, or extreme tiredness, stop the activity and rest. Please notify your physicians office if you experience any of these symptoms and they are not relieved by rest please call 911. Referrals: Kinjal Durham MD [Partnered Physician] - 07/31/17 8:00 am NONE,PCP [Primary Care Provider] - (patient will need follow up with PCP when released from [facility] for monitoring of chest pain, and blood in sputum) Crow Velez DO [Partnered Physician] - (will call with appointment time and date.) <Kinjal Durham - Last Filed: 07/26/17 14:14> Date of Encounter: 07/26/17 All Systems: A 10-system review of systems was performed and is negative for pertinent findings except as documented above in the HPI. Results - Laboratory Findings CBC and BMP: 07/26/17 05:38 07/26/17 05:38 PT/INR, D-dimer PT 9.4 Seconds (9.4-12.1) 07/24/17 19:07 D-Dimer < 215 ng/mLFEU (0-500) 07/24/17 19:07 Abnormal lab findings: Abnormal lab results MCH 27.5 pg (28.0-33.3) L 07/26/17 05:38 Potassium 4.6 mEq/L (3.5-4.5) H 07/26/17 05:38 Creatinine 0.70 mg/dL (0.72-1.25) L 07/26/17 05:38 Calcium 8.4 mg/dL (8.6-10.8) L 07/26/17 05:38 Alkaline Phosphatase 128 Units/L (38-126) H 07/24/17 19:07 Albumin 3.4 g/dL (3.5-5.0) L 07/24/17 19:07 Globulin 3.6 g/dL (2.4-3.5) H 07/24/17 19:07 Albumin/Globulin Ratio 0.9 (1.1-2.2) L 07/24/17 19:07 - Clinical Findings Intake & Output: Intake & Output 07/25/17 07/26/17 07/26/17 23:59 07:59 15:59 Intake Total 240 / 240 800 / 800 Output Total 450 / 450 600 / 600 Balance -450 / -450 -360 / -360 800 / 800 Weight 88.768 kg - Attending Attestation I examined this patient and my medical decision-making was reviewed with the Resident Physician. I agree with the documented findings, disposition and treatment plan as described except to the extent set forth below. Patient seen and examined. Labs, radiology, chart personally reviewed. Agree with resident's history and physical, assessment, plan with following comments: NET WEB DEVELOPER: Patient follows commands, Pulmonary: Acceptable oxygenation and ventilation. Patient claims he has hemoptysis in the past few weeks which was minimal and there was no any hemoptysis since he has been hospitalized and since patient has cardiac workup done without significant abnormalities in the images then outpatient follow-up is recommended and this was explained to the patient and also primary team. We discussed also bronchoscopy, however since patient not having any acute problems at this time we will continue monitor. Cardiovascular: stable Thank you very much for consultation.
[2017-07-26 07:05] VITALS: BP 114/72
[2017-07-26] MEDS: Aspirin Enteric Coated 81 MG Tablet PO SCH (08:36)
--- NOTE | 2017-07-26 09:46 | Discharge Summary ---
Date of Encounter: 07/26/17 Time of Encounter: 09:36 - Discharge Diagnosis (1) CAD (coronary artery disease) Priority: Primary Status: Acute Comments: per hx. presented with persistent chest pain for 2-3 days prior to arrival. Reported abnormal stress test at [facility] 02/2017 but did not follow up with cardiology. Chest CTA negative for pulmonary embolism. Serial troponins negative, EKG without acute ST changes. TTE with EF 60%, mild diastolic dysfunction. Underwent a LHC showed mild, nonobstructive CAD; no intervention required. Chest pain possibly secondary to stress/anxiety. Continue home ASA, BB, and statin. Follow up with cardiology outpatient. Qualifiers: Coronary Disease-Associated Artery/Lesion type: [place] artery [place] vs. transplanted heart: [place] heart Associated angina: with unstable angina Qualified Code(s): I25.110 - Atherosclerotic heart disease of [place] coronary artery with unstable angina pectoris (2) Lung nodule Priority: Primary Status: Acute Comments: 4 mm nodule within the left lower lobe involving the major fissure. Patient reported significant hemoptysis prior to arrival (not witnessed by staff; Hgb stable). Will need repeat CT in 3-6 months and follow up with Pulmonary outpatient. Pulmonology followed. (3) Aortic aneurysm Priority: Primary Status: Acute Comments: Chest CTA with 4 cm mild ascending aortic aneurysm, no evidence of dissection. Asymptomatic. BP controlled. Will need to follow up outpatient with Cardiology. Qualifiers: Aortic location: abdominal aorta Presence of rupture: without rupture Qualified Code(s): I71.4 - Abdominal aortic aneurysm, without rupture (4) COPD (chronic obstructive pulmonary disease) Priority: Secondary Status: Chronic Comments: per hx. No evidence of exacerbation. Qualifiers: COPD type: emphysema Emphysema type: unspecified Qualified Code(s): J43.9 - Emphysema, unspecified - Discharge Medications Home Medications: Aspirin [Lo-Dose Aspirin EC] 81 mg PO DAILY 07/25/17 [History] Citalopram [CeleXA] 20 mg PO DAILY 07/25/17 [History] Metoprolol [Lopressor] 50 mg PO BID 07/25/17 [History] Mirtazapine [Remeron] 15 mg PO HS 07/25/17 [History] Nitroglycerin [Nitrostat] 0.4 mg SL Q5M PRN 07/25/17 [History] Simvastatin [Zocor] 20 mg PO HS 07/25/17 [History] Allergies/Adverse Reactions: 3 Allergy/AdvReac Type Severity Reaction Status Date / Time No Known Allergies Allergy Verified 07/24/17 18:58 Procedures/tests Complete & Pending: Procedures Performed prior 72 hours Category Date Time Status CT chest wo con [CT] Routine Cat Scan 07/25/17 08:30 Completed CTA chest [CT angio chest] [CT] Stat Cat Scan 07/25/17 10:51 Completed CL Cardiac Catheterization [CL] Routine Dog Barber 07/25/17 10:32 Ordered EV echocardiogram Routine Y 07/25/17 22:49 Completed Date of admission: 07/24/17 21:27 Primary care physician: PCP NONE Consults: 07/24/17 22:48 Consult to Cardiology [CONS] Routine Comment: Consulting Provider: [facility] [place] Reason for Consult: admitted for CP, abnormal stress at [facility] Call Completed: No 07/25/17 16:04 Consult to Pulmonology [CONS] Routine Consulting Provider: [facility] [place] Reason for Consult: Lung nodule with hemoptysis; former smoker Call Completed: Yes Discharging clinician: Carri Mitchell Anticipated date of discharge: 07/26/17 - Patient Status Disposition: Home, Self-Care Condition: Good Functional capacity at discharge: independent ambulation Overall status at discharge: patient is back to baseline - Discharge Instructions Instructions: Coronary Artery Disease (DC), Pulmonary Nodules (DC), Acute Hemoptysis (DC), Abdominal Aortic Aneurysm (DC) Follow Up With: NONE,PCP [Primary Care Provider] - (patient will need follow up with PCP when released from [facility] for monitoring of chest pain, and blood in sputum) Kinjal Durham MD [Partnered Physician] - Crow Velez DO [Partnered Physician] - Additional Instructions: A chest CT was done that showed a 4mm lung nodule, you will need to have a repeat chest CT within 3-6 months and follow-up with Pulmonology A chest CT showed a 4cm abdominal aortic aneurysm. You will need to follow-up with Cardiology for further management/monitoring If you do not hear from Cardiology or Pulmonology within 2 weeks, please call their offices to make an appt RISK FACTORS: STOP SMOKING: If you smoke, STOP. Smoking or tobacco use significantly increases your risk of heart disease because nicotine causes the arteries to narrow or constrict. It also causes fats to stick to the artery. Your chances of having a heart attack are greatly increased if you continue to smoke. For more information, call the education line for smoking cessation 1-157-TPQFSNB EAT A LOW FAT/CHOLESTEROL/SODIUM DIET: This diet may help reduce your chances of having a heart attack. LIFTING: Avoid lifting anything more than 10 pounds for 5-7 days Prior to straining, laughing, sneezing and/or coughing, apply manual pressure directly over insertion site. ACTIVITY: You may walk or climb stairs as tolerated You can resume sexual activity as tolerated In general, you are encouraged to engage in a minimum of 30 minutes or more of moderate intensity physical activity, such as brisk walking, daily or at least 3 -4 times weekly BATHING Do not submerge the site into water (bath tub, hot tub, swimming pool) for 1 week. This can be a source for infection into the blood stream. You may shower after 24 hours SITE CARE: After 24 hours, you may remove the dressing and leave the site open to air. Keep the site clean and dry. Clean gently and pat dry. You can expect bruising and tenderness that gradually resolve within a week or two. Return to work as instructed per your physician Resume driving as instructed per physician Keep all scheduled follow up appointments Resume medications as instructed IMPORTANT: If prescribed a Platelet Aggregation Inhibitor such as, Plavix, Brilinta or Effient: Duration of therapy is minimum one year These medications are often used in combination with Aspirin in prevention of future heart attacks Never discontinue unless consult with your Miniature Set Constructor STROKE (CVA) Risk factors for a stroke are: Age, cigarette smoking, diabetes, excessive alcohol consumption, family history, high blood pressure, overweight, physical inactivity, prior stroke, heart attack, diagnosis of carotid artery stenosis or other artery disease. Warning signs: Sudden numbness or weakness of the face, arm or leg; especially on one side of the body, sudden confusion, trouble speaking or understanding, sudden trouble seeing in one or both eyes, sudden trouble walking, dizziness, loss of balance or coordination, sudden severe headache with no cause. Call 911 or go to the Emergency Room. CONGESTIVE HEART FAILURE: If you have been diagnosed with Congestive Heart Failure (CHF) and your symptoms return, make an appointment with your physician Weigh yourself daily. Notify your physician if you have a weight gain of two or more pounds in one day or five or more pounds in one week. If you experience any difficulty breathing, please call 911 BLEEDING: Although the risk of bleeding is minimal, it can happen. If you have any bleeding from the site, apply firm pressure above the puncture site for 10-15 minutes. If the bleeding does not stop, continue manual pressure and call 911 Contact your physician if: You develop a fever greater than 101 degrees Fahrenheit Your site becomes reddened or has any drainage You have an increase in pain or burning at the site or if a large knot forms at the site. If you experience chest pain, shortness of breath, dizziness, or extreme tiredness, stop the activity and rest. Please notify your physicians office if you experience any of these symptoms and they are not relieved by rest please call 911. - Diet and Activity Activity: increase activity as tolerated Diet: low fat, low cholesterol Interval History: Seen and examined at bedside, patient says he feel about the same. Still with intermittent chest pain. He thinks it maybe related to stress. Says he feels better overall and would like to be discharged today. No SOB. He is aware of need to follow-up with Cardiology and PCP. Hospital course: See assessment and plan for hospital course - Time Spent with Patient Total time spent providing and/or coordinating discharge services: - Constitutional Vitals: Temp Pulse Resp BP Pulse Ox 98.4 F 77 18 114/72 95 07/26/17 07:04 07/26/17 07:04 07/26/17 07:04 07/26/17 07:04 07/26/17 07:04 General appearance: Present: A&O X 3, no acute distress - Head Head exam: Present: atraumatic, normocephalic - Eye Eye exam: Present: PERRL, conjuntiva pink, sclera anicteric Pupils: Present: PERRL - Neck Neck exam general surgery: Present: supple, trachea midline. Absent: lymphadenopathy - Respiratory Respiratory exam: Present: CTAB. Absent: accessory muscle use, rales, rhonchi, wheezes - Cardiovascular Cardiovascular exam: Present: RRR, +S1, +S2. Absent: diastolic murmur, gallop, rubs, systolic murmur - GI/Abdominal GI/Abdominal exam: Present: normal bowel sounds, soft, no peritoneal signs. Absent: distended, tenderness - Extremities Exam Extremities exam: Present: warm, radial pulses palpable and symmetrical. Absent : calf tenderness, cyanotic, pedal edema - Neurological Exam Neurological exam: Present: CN II-XII intact, oriented X3, no focal deficits. Absent: pronater drift, facial droop, speech deficit - Skin Skin exam: Present: dry, intact
--- NOTE | 2017-07-26 10:47 | Cardiology Progress Note ---
Date of Encounter: 07/26/17 Time of Encounter: 10:46 Assessment and Plan (1) Atypical chest pain Current Visit: Yes Status: Acute Interval: Abnormal stress test at [facility] in January 2017. Pt reports chest pressure at 3 minutes of exercise stress test, test stopped, no interventions performed then at [facility], pt states he did not follow-up to appointment with Tower Operator afterwards. Neg trops x2, no ST changes on ECG. Plan: S/p LHC, 40% stenosis mid/distal LAD; diagnostic, no indication for stenting. No post-procedure hematoma/bleed. Incidental 4.3cm ascending aortic aneurysm, non-urgent, recommend outpatient monitoring. Continue ASA/statin/BB (on Zocor, on metoprolol) Cardiology to sign-off, thank you for the consult. (2) Aortic aneurysm Current Visit: Yes Status: Acute 4.3cm ascending aortic aneurysm; monitor outpatient, ASA/BB. Qualifiers: Aortic location: abdominal aorta Presence of rupture: without rupture Qualified Code(s): I71.4 - Abdominal aortic aneurysm, without rupture (3) Lung nodule Current Visit: Yes Status: Acute Hemoptysis workup: CT chest, 4mm left lower lobe, followed by pulmonology; plan to monitor outpatient. H&H stable. Discussion w patient/family: The assessment and plan as outlined above was discussed with the patient and/or family members who expressed understanding and agreement. All questions were answered. Thank you for involving us in the care of your patient. Please call with any questions. Subjective Principal diagnosis: Atypical Chest Pain Interval history: Pt sitting next to bed. He denies pain in groin/no hematoma/bleed. No hemoptysis during admission. Pulmonology plans to seem him outpatient regarding his hemoptysis and 4mm lung nodule. He has no questions after diagnostic LHC. Objective Vital Signs, Last 4 Hours Temp Pulse Resp BP Pulse Ox 07/26/17 07:04 98.4 F 77 18 114/72 95 General: Conversant HEENT: Atraumatic, Other Neck: No JVD, Normal carotid pulses Cardiac: Reg Rate and Rhythm, Normal S1 and S2, No Murmur Lungs: No Wheeze, Rales, Rhonchi Skin: Other (no groin hematoma/bleed) Extremities: No Clubbing, No Cyanosis, No Edema Results 07/26/17 05:38 07/26/17 05:38 Lab Results 07/25/17 07/26/17 07/26/17 12:52 05:38 05:38 WBC 8.1 Hgb 13.5 13.2 Hct 41.2 40.8 Plt Count 282 Sodium Potassium Chloride Carbon Dioxide BUN Creatinine Glucose Calcium Troponin I 0.00 07/26/17 05:38 WBC Hgb Hct Plt Count Sodium 138 Potassium 4.6 H Chloride 107 Carbon Dioxide 23 BUN 13 Creatinine 0.70 L Glucose 97 Calcium 8.4 L Troponin I Consult Discharge Plan - Plan Instructions: Coronary Artery Disease (DC), Abdominal Aortic Aneurysm (DC), Acute Hemoptysis (DC), Pulmonary Nodules (DC) Additional Instructions: A chest CT was done that showed a 4mm lung nodule, you will need to have a repeat chest CT within 3-6 months and follow-up with Pulmonology A chest CT showed a 4cm abdominal aortic aneurysm. You will need to follow-up with Cardiology for further management/monitoring If you do not hear from Cardiology or Pulmonology within 2 weeks, please call their offices to make an appt RISK FACTORS: STOP SMOKING: If you smoke, STOP. Smoking or tobacco use significantly increases your risk of heart disease because nicotine causes the arteries to narrow or constrict. It also causes fats to stick to the artery. Your chances of having a heart attack are greatly increased if you continue to smoke. For more information, call the education line for smoking cessation 3-163-YNZBJYB EAT A LOW FAT/CHOLESTEROL/SODIUM DIET: This diet may help reduce your chances of having a heart attack. LIFTING: Avoid lifting anything more than 10 pounds for 5-7 days Prior to straining, laughing, sneezing and/or coughing, apply manual pressure directly over insertion site. ACTIVITY: You may walk or climb stairs as tolerated You can resume sexual activity as tolerated In general, you are encouraged to engage in a minimum of 30 minutes or more of moderate intensity physical activity, such as brisk walking, daily or at least 3 -4 times weekly BATHING Do not submerge the site into water (bath tub, hot tub, swimming pool) for 1 week. This can be a source for infection into the blood stream. You may shower after 24 hours SITE CARE: After 24 hours, you may remove the dressing and leave the site open to air. Keep the site clean and dry. Clean gently and pat dry. You can expect bruising and tenderness that gradually resolve within a week or two. Return to work as instructed per your physician Resume driving as instructed per physician Keep all scheduled follow up appointments Resume medications as instructed IMPORTANT: If prescribed a Platelet Aggregation Inhibitor such as, Plavix, Brilinta or Effient: Duration of therapy is minimum one year These medications are often used in combination with Aspirin in prevention of future heart attacks Never discontinue unless consult with your Tower Operator STROKE (CVA) Risk factors for a stroke are: Age, cigarette smoking, diabetes, excessive alcohol consumption, family history, high blood pressure, overweight, physical inactivity, prior stroke, heart attack, diagnosis of carotid artery stenosis or other artery disease. Warning signs: Sudden numbness or weakness of the face, arm or leg; especially on one side of the body, sudden confusion, trouble speaking or understanding, sudden trouble seeing in one or both eyes, sudden trouble walking, dizziness, loss of balance or coordination, sudden severe headache with no cause. Call 911 or go to the Emergency Room. CONGESTIVE HEART FAILURE: If you have been diagnosed with Congestive Heart Failure (CHF) and your symptoms return, make an appointment with your physician Weigh yourself daily. Notify your physician if you have a weight gain of two or more pounds in one day or five or more pounds in one week. If you experience any difficulty breathing, please call 911 BLEEDING: Although the risk of bleeding is minimal, it can happen. If you have any bleeding from the site, apply firm pressure above the puncture site for 10-15 minutes. If the bleeding does not stop, continue manual pressure and call 911 Contact your physician if: You develop a fever greater than 101 degrees Fahrenheit Your site becomes reddened or has any drainage You have an increase in pain or burning at the site or if a large knot forms at the site. If you experience chest pain, shortness of breath, dizziness, or extreme tiredness, stop the activity and rest. Please notify your physicians office if you experience any of these symptoms and they are not relieved by rest please call 911. Referrals: Kinjal Durham MD [Partnered Physician] - NONE,PCP [Primary Care Provider] - (patient will need follow up with PCP when released from [facility] for monitoring of chest pain, and blood in sputum) Crow Velez, [Partnered Physician] -
[2017-07-26 14:18] LABS: Hemoglobin A1C 5.1 %
[2017-07-26 14:24] LABS: Chol/HDL Ratio 4.2 (0-4.9); Cholesterol 142 mg/dL (< 200); HDL Cholesterol 34 mg/dL (40-59); LDL Cholesterol,Calculated 89 mg/dL (0-99); Triglycerides 96 mg/dL (< 150)
== END 2017-07-26 11:40 | disposition home or self-care (01) ==
LOC: 3BNU 18:57 → EMEROO 18:57 → 3BNU 22:05
PROVIDERS: ADMIT Internal Medicine Hematology & Oncology; ATTEND Registered Nurse

== ENCOUNTER 2017-09-03 12:18 | Observation (INO) ==
[2017-09-03 13:40] LABS: Basophils # 0.1 K/mcL (0.0-0.2); Basophils % 0.5 %; Eosinophils % 0.1 %; Hematocrit 43.1 % (37.5-50.1); Hemoglobin 13.9 g/dL (12.9-16.9); Immature Granulocytes % 0.9 % (0-4); Lymphocytes # 1.8 K/mcL (0.6-4.6); Lymphocytes % 17.1 %; Mean Corpuscular HGB Conc 32.3 g/dL (31.6-35.5); Mean Corpuscular Hemoglobin 28.1 pg (28.0-33.3); Mean Corpuscular Volume 87.2 fL (83.0-100.0); Mean Platelet Volume 11.1 fL (9.4-12.4); Monocytes # 0.7 K/mcL (0.0-1.3); Monocytes % 6.8 %; Neutrophils # 7.9 K/mcL (1.6-8.9); Platelet Count 315 K/mcL (140-400); Red Blood Count 4.94 M/mcL (4.19-5.50); Red Cell Distribution Width 14.2 % (11.5-14.5); Segmented Neutrophils % 74.6 %
[2017-09-03 13:49] LABS: INR 0.9; Prothrombin Time 9.6 Seconds (9.4-12.1)
[2017-09-03 14:26] LABS: BUN/Creatinine Ratio 22 (6-26); Blood Urea Nitrogen 18 mg/dL (6-20); Calcium 9.1 mg/dL (8.6-10.3); Carbon Dioxide 25 mEq/L (23-29); Chloride 106 mEq/L (98-107); Glucose 97 mg/dL (70-105); Osmolality,Calculated 288 (280-300); Potassium 4.3 mEq/L (3.5-5.1); Sodium 138 mEq/L (136-145); eGFR For African Americans > 60 (> 60); eGFR For Non-African Americans > 60 (> 60)
[2017-09-03] MEDS: 0.9 % Sodium Chloride 1,000 ML IVC SCH (18:56)
[2017-09-03] MEDS: Nitroglycerin 0.4 MG TAB.SUBL SL PRN ×3 (19:56→20:11)
[2017-09-03] MEDS ORDERED: *HR* HYDROmorphone (PF) 1 MG/ML SYRINGE IVP ONE (20:13)
--- NOTE | 2017-09-03 20:25 | Emergency Department Note ---
Disposition Clinical Impression: Chest pain Qualifiers: Chest pain type: other chest pain Qualified Code(s): R07.89 - Other chest pain ; R07.8 - Other chest pain CAD (coronary artery disease) Qualifiers: Coronary Disease-Associated Artery/Lesion type: unspecified vessel or lesion type [place] vs. transplanted heart: alutiiq heart Disposition: Admitted As Inpatient Referrals: NONE,PCP [Primary Care Provider] - General Adult HPI - General Chief complaint: ED Chest Pain Stated complaint: CP/SOB/Can't sleep Time Seen by Provider: 09/03/17 15:32 Source: patient Mode of arrival: ambulatory Limitations: no limitations Nursing Notes Reviewed: Yes Vital Signs Reviewed: Yes - History of Present Illness HPI Narrative: History this 57-year-old white male with a history of hyperlipidemia, hypertension, known CAD who presents to the emergency department with a 2-3 day history of intermittent substernal and left-sided chest discomfort that has been radiating into the left shoulder and arm associated with some mild shortness of breath. Patient states this pain has been gradually worsening in severity and that this most recent episode started when he woke from sleep this morning. Patient denies any lightheadedness or syncope, no radiation of pain through to the back, no abdominal or flank pain. No diaphoresis. No lower extremity pain or swelling. Patient was last hospitalized in July with similar symptoms of chest pain and underwent left heart catheter at that time was found to have 60% stenotic lesion but did not require stent placement. Patient is rating his pain an 8 out of 10 in severity on arrival to the emergency department. Pain Scale: 7 - Related Data Home Medications Medication Instructions Recorded Confirmed Nitroglycerin [Nitrostat] 0.4 mg SL Q5M PRN 07/25/17 08/13/17 Simvastatin [Zocor] 20 mg PO HS 07/25/17 08/13/17 Albuterol Sulfate [Albuterol 1 puff IH Q4H PRN 08/09/17 08/13/17 Inhaler] Metoprolol [Lopressor] 50 mg PO BID 08/13/17 08/13/17 Previous Rx's Medication Instructions Recorded Budesonide/Formoterol 160/4.5 2 puff IH BIDR #1 hfa.aer.ad 08/09/17 [Symbicort 160/4.5] Citalopram [CeleXA] 20 mg PO DAILY #30 tablet 12/29/17 Mirtazapine [Remeron] 15 mg PO HS #30 tablet 08/09/17 Doxycycline 100 mg PO BID #20 capsule 08/15/17 Benzonatate [Tessalon] 100 mg PO TID PRN #21 capsule 08/21/17 PredniSONE [Deltasone] 60 mg PO DAILY #5 tablet 08/21/17 Acetaminophen [Tylenol] 1,000 mg PO TID #30 tablet 08/27/17 Ibuprofen [Motrin] 800 mg PO Q8HR #30 tablet 08/27/17 Ondansetron [Zofran] 8 mg PO Q8HR #9 tablet 08/27/17 Allergies Allergy/AdvReac Type Severity Reaction Status Date / Time No Known Allergies Allergy Verified 09/03/17 19:04 All systems ED: reviewed and negative except as stated. Review of Systems: As Per HPI Past Medical History - Past Medical History Medical history: Reports: cancer, hypertension, TIA Surgical history: Reports: herniorrhaphy Psychiatric history: Reports: no psych history - Social History Smoking Status: Former smoker Smokeless Tobacco Status: No Alcohol use: Reports: none Drug use: Reports: none Physical Exam - General Limitations: no limitations General appearance: alert, in no apparent distress - Head Head exam: atraumatic, normocephalic, normal inspection - Eye Eye exam: Present: normal appearance, PERRL, EOMI. Absent: scleral icterus - ENT ENT exam: normal exam, normal oropharynx, mucous membranes moist - Neck Neck exam: Present: normal inspection, full ROM - Chest Chest inspection: Present: normal inspection, symmetric chest wall rise - Respiratory Respiratory exam: Present: normal lung sounds bilaterally. Absent: respiratory distress, wheezes, stridor, accessory muscle use - Cardiovascular Cardiovascular exam: Present: regular rate, normal rhythm, normal heart sounds - Abdominal Exam Abdominal exam: Present: soft, Non-Tender, normal bowel sounds - Extremities Exam Extremities exam: Present: normal inspection, normal capillary refill. Absent: pedal edema, calf tenderness - Back Exam Back exam: Present: normal inspection. Absent: CVA tenderness (R), CVA tenderness (L) - Neurological Exam Neurological exam: Present: alert, oriented X3, CN II-XII intact, normal gait, reflexes normal. Absent: motor sensory deficit - Psychiatric Psychiatric exam: Present: normal affect, normal mood - Skin Skin exam: Present: warm, dry, intact, normal color. Absent: cyanosis, diaphoresis Course Course Narrative: Patient took 4 baby aspirin at home today prior to arrival, no other medications at home for pain. Patient was given nitroglycerin which seemed to improve his pain for a short period of time. Patient's lab evaluation is unremarkable including a negative troponin. Patient's chest x-ray was unremarkable as well. Patient's CTA of the chest considering his known thoracic aortic aneurysm was unremarkable with no evidence of dissection or changes. Negative for PE. I discussed the case with the hospitalist, Dr. Petersen who agreed to admission for further evaluation and management of the patient's chest pain. Discussed at 8:20 PM Vital Signs Temperature 98.3 F 09/03/17 12:25 Pulse Rate 95 09/03/17 12:25 Respiratory Rate 18 09/03/17 12:25 Blood Pressure 123/83 09/03/17 12:25 O2 Sat by Pulse Oximetry 97 09/03/17 12:25 Temperature 98.3 F 09/03/17 12:25 Pulse Rate 76 09/03/17 20:00 Respiratory Rate 18 09/03/17 20:00 Blood Pressure 131/96 09/03/17 20:00 O2 Sat by Pulse Oximetry 97 09/03/17 20:00 Oxygen Delivery Oxygen Delivery Room Air Medical Decision Making - Medical Records Medical records reviewed: Yes I reviewed the patient's medical records. - Lab Data Lab results reviewed: Yes I reviewed the patient's lab results. Result diagrams: 09/03/17 13:12 09/03/17 13:12 Lab Results 09/03/17 09/03/17 09/03/17 Range/Units 13:12 13:12 13:12 WBC 10.6 (4.3-11.1) K/mcL RBC 4.94 (4.19-5.50) M/mcL Hgb 13.9 (12.9-16.9) g/dL Hct 43.1 (37.5-50.1) % MCV 87.2 (83.0-100.0) fL MCH 28.1 (28.0-33.3) pg MCHC 32.3 (31.6-35.5) g/dL RDW 14.2 (11.5-14.5) % Plt Count 315 (140-400) K/mcL MPV 11.1 (9.4-12.4) fL Immature Gran % 0.9 (0-4) % Seg Neutrophils % 74.6 % Lymphocytes % 17.1 % Monocytes % 6.8 % Eosinophils % 0.1 % Basophils % 0.5 % Neutrophils # 7.9 (1.6-8.9) K/mcL Lymphocytes # 1.8 (0.6-4.6) K/mcL Monocytes # 0.7 (0.0-1.3) K/mcL Eosinophils # 0.0 (0.0-0.6) K/mcL Basophils # 0.1 (0.0-0.2) K/mcL PT 9.6 (9.4-12.1) Seconds INR 0.9 APTT 26.0 (26.0-36.0) Seconds Sodium 138 (136-145) mEq/L Potassium 4.3 (3.5-5.1) mEq/L Chloride 106 (98-107) mEq/L Carbon Dioxide 25 (23-29) mEq/L BUN 18 (6-20) mg/dL Creatinine 0.83 (0.70-1.30) mg/dL Est GFR ( Amer) > 60 (> 60) Est GFR (Non-Af Amer) > 60 (> 60) BUN/Creatinine Ratio 22 (6-26) Glucose 97 (70-105) mg/dL Calculated Osmolality 288 (280-300) Calcium 9.1 (8.6-10.3) mg/dL Troponin I (< 0.04) ng/mL 09/03/17 Range/Units 13:12 WBC (4.3-11.1) K/mcL RBC (4.19-5.50) M/mcL Hgb (12.9-16.9) g/dL Hct (37.5-50.1) % MCV (83.0-100.0) fL MCH (28.0-33.3) pg MCHC (31.6-35.5) g/dL RDW (11.5-14.5) % Plt Count (140-400) K/mcL MPV (9.4-12.4) fL Immature Gran % (0-4) % Seg Neutrophils % % Lymphocytes % % Monocytes % % Eosinophils % % Basophils % % Neutrophils # (1.6-8.9) K/mcL Lymphocytes # (0.6-4.6) K/mcL Monocytes # (0.0-1.3) K/mcL Eosinophils # (0.0-0.6) K/mcL Basophils # (0.0-0.2) K/mcL PT (9.4-12.1) Seconds INR APTT (26.0-36.0) Seconds Sodium (136-145) mEq/L Potassium (3.5-5.1) mEq/L Chloride (98-107) mEq/L Carbon Dioxide (23-29) mEq/L BUN (6-20) mg/dL Creatinine (0.70-1.30) mg/dL Est GFR ( Amer) (> 60) Est GFR (Non-Af Amer) (> 60) BUN/Creatinine Ratio (6-26) Glucose (70-105) mg/dL Calculated Osmolality (280-300) Calcium (8.6-10.3) mg/dL Troponin I < 0.03 (< 0.04) ng/mL - Radiology Data Radiology results reviewed: Yes I reviewed the patient's radiology results. Chest X-Ray 09/03/17 12:29 IMPRESSION: No acute process. D/ / Ankush Gomes MD / Ankush Gomes MD Interpreting Provider: Ankush Gomes MD Chest CTA 09/03/17 18:23 IMPRESSION: No evidence of pulmonary embolism or acute pulmonary abnormality. No evidence of thoracic aortic aneurysm or dissection. D/ / Fred Espinoza MD / Fred Espinoza MD Interpreting Provider: Fred Espinoza MD - EKG Data EKG #1 EKG results narrative: Patient's EKG was interpreted by myself without benefit of formal cardiology interpretation showing a normal sinus rhythm at 94 bpm with an incomplete right bundle branch block no acute ischemia is appreciated, this is unchanged from his prior EKG from 08/27/2017
[2017-09-03] MEDS ORDERED: Naloxone 0.4 MG/ML INJ IVP PRN (21:53)
[2017-09-03] MEDS ORDERED: Acetaminophen 325 MG TABLET PO PRN (21:53)
--- NOTE | 2017-09-03 22:25 | Internal Med History&Physical ---
<Blanca Quezada - Last Filed: 09/03/17 22:31> Date of Encounter: 09/03/17 Time of Encounter: 22:19 Assessment and Plan (1) Chest pain Current visit: Yes Status: Acute 1 Patient has been experiencing intermittent chest pain which occurs at rest over the past 2-3 days. He did have an episode which awoke him from sleep. He describes the pain as sharp midsternal radiating to his left arm. He has a history of CAD underwent left heart catheter 07/28 shows 60% stenosis in mid LAD he did not receive a stent at time first. Troponin was negative which we will continue to trend 2 continuous cardiac monitoring 3 continue with aspirin and statin and beta sara 4 nitroglycerin needed for chest pain 5 we will consult cardiology 6 NPO after midnight, or any possible cardiac intervention in the a.m. 7 we will check lipid profile in a.m. Qualifiers: Chest pain type: other chest pain Qualified Code(s): R07.89 - Other chest pain; R07.8 - Other chest pain (2) HTN (hypertension) Current visit: No Status: Chronic Presently controlled continue with metoprolol Qualifiers: Hypertension type: essential hypertension Qualified Code(s): I10 - Essential (primary) hypertension (3) DVT prophylaxis Current visit: Yes Status: Acute [facility] Internal Medicine - H&P: HPI Chief complaint: CP Admitted From: Emergency Dept Plans for Post Hospital Care: Home History of present illness: Mr. Montana is a 57 year old male with past medical history of hyperlipidemia hypertension CAD lung cancer. For the past 2-3 days patient has been experiencing intermittent substernal and left-sided chest pain that radiates into his left shoulder. Describes the pain as sharp 10/10 with associated symptoms of shortness of breath. The pain occurs while at rest there are no aggravating or relieving factors, and usually resolves on its own. He has taken some nitroglycerin with some relief at times. Over the past few days the pain has gradually worsened in severity as well as frequency. He did experience an episode in which the pain woke him from his sleep this a.m. he did undergo a LHC 07/28 which did reveal 60% stenosis in mid LAD, no stent was placed at that time. Patient presented to the ER if the above complaints. According to ER records lab work was obtained and was unremarkable chest x-ray with no acute process EKG sinus with right bundle branch block unchanged from previous. Presently patient is hemodynamically stable he continues to complain of intermittent chest pain rating it 8/ 10 describing as fleeting midsternal sharp. I did review this case with Dr Card who agrees with plan. Past Med Surg Social Fam HX - Past Medical History Medical history: cancer, hypertension, TIA Psychiatric history: no psych history - Past Surgical History Surgical History: herniorrhaphy - Social History Smoking Status: Former smoker Smokeless Tobacco Status: No Alcohol use: none Drug use: none - Family History Mother Adopted: No Living Status: Hx Family Cardiac Disorders: Yes (open heart surgery) Hx Family Cancer: Yes (lung) Internal Medicine - H&P: Meds Nitroglycerin [Nitrostat] 0.4 mg SL Q5M PRN 07/25/17 [History] Simvastatin [Zocor] 20 mg PO HS 07/25/17 [History] Albuterol Sulfate [Albuterol Inhaler] 1 puff IH Q4H PRN 08/09/17 [History] Budesonide/Formoterol 160/4.5 [Symbicort 160/4.5] 2 puff IH BIDR #1 hfa.aer.ad 08/09/17 [Rx] Citalopram [CeleXA] 20 mg PO DAILY #30 tablet 08/09/17 [Rx] Mirtazapine [Remeron] 15 mg PO HS #30 tablet 08/09/17 [Rx] Metoprolol [Lopressor] 50 mg PO BID 08/13/17 [History] Doxycycline 100 mg PO BID #20 capsule 08/15/17 [Rx] Benzonatate [Tessalon] 100 mg PO TID PRN #21 capsule 08/21/17 [Rx] PredniSONE [Deltasone] 60 mg PO DAILY #5 tablet 08/21/17 [Rx] Acetaminophen [Tylenol] 1,000 mg PO TID #30 tablet 08/27/17 [Rx] Ibuprofen [Motrin] 800 mg PO Q8HR #30 tablet 08/27/17 [Rx] Ondansetron [Zofran] 8 mg PO Q8HR #9 tablet 08/27/17 [Rx] 3 Allergy/AdvReac Type Severity Reaction Status Date / Time No Known Allergies Allergy Verified 09/03/17 19:04 All Systems PM: A 10-system review of systems was performed and is negative for pertinent findings except as documented above in the HPI. - Constitutional Constitutional: no chills, no fever(s), no night sweats - EENT Eyes: no change in vision, no discharge, no pain, no photophobia Nose, mouth and throat: no dysphagia, no nasal discharge, no neck pain, no sore throat - Cardiovascular Cardiovascular ROS IM: chest pain, dyspnea - Respiratory Respiratory: no cough, no dyspnea, no wheezing, no excessive phlegm production - Gastrointestinal Gastrointestinal: no abdominal pain, no diarrhea, no hematemesis, no hematochezia, no melena, no nausea, no vomiting - Musculoskeletal Musculoskeletal ROS IM: no numbness, no tingling - Integumentary Integumentary IM: no rash, no unusual bruising - Neurological Neurological ROS: no confusion, no convulsions, no focal weakness, no numbness, no tingling, no tremor(s) - Hematologic/Lymphatic Hematologic/Lymphatic: no easy bruising - Constitutional Vitals: Temp Pulse Resp BP Pulse Ox 97.7 F 60 16 144/92 96 09/03/17 21:24 09/03/17 21:24 09/03/17 21:24 09/03/17 21:24 09/03/17 21:24 General appearance: Present: A&O X 3, answers questions appropriately - Head Head exam: Present: atraumatic, normocephalic - Eye Eye exam: Present: PERRL, conjuntiva pink, sclera anicteric Pupils: Present: PERRL - Neck Neck exam general surgery: Present: supple, trachea midline. Absent: lymphadenopathy - Respiratory Respiratory exam: Present: CTAB. Absent: accessory muscle use, rales, rhonchi, wheezes - Cardiovascular Cardiovascular exam: Present: RRR, +S1, +S2. Absent: diastolic murmur, gallop, rubs, systolic murmur - GI/Abdominal GI/Abdominal exam: Present: normal bowel sounds, soft, no peritoneal signs. Absent: distended, tenderness - Extremities Exam Extremities exam: Present: warm, radial pulses palpable and symmetrical. Absent : calf tenderness, cyanotic, pedal edema - Neurological Exam Neurological exam: Present: CN II-XII intact, oriented X3, no focal deficits. Absent: pronater drift, facial droop, speech deficit - Skin Skin exam: Present: dry, intact Internal Med - H&P Results - Labs CBC & Chem 7: 09/03/17 13:12 09/03/17 13:12 - EKG Data EKG shows normal: sinus rhythm - EKG Data Prior EKG available for review: yes When compared to previous EKG: there is no significant change - Diagnostic Studies Chest x-ray Additional comments: Chest X-Ray 09/03/17 12:29 IMPRESSION: No acute process. D/ / Ankush Gomes MD / Ankush Gomes MD Interpreting Provider: Ankush Gomes MD Chest CTA 09/03/17 18:23 IMPRESSION: No evidence of pulmonary embolism or acute pulmonary abnormality. No evidence of thoracic aortic aneurysm or dissection. D/ / Fred Espinoza MD / Fred Espinoza MD Interpreting Provider: Fred Espinoza MD <Ute Card - Last Filed: 09/03/17 23:19> Date of Encounter: 09/03/17 Time of Encounter: 23:00 Internal Medicine - H&P: HPI History of present illness: Mr. Montana is a 57 year old male All Systems PM: A 10-system review of systems was performed and is negative for pertinent findings except as documented above in the HPI. - Constitutional Vitals: Temp Pulse Resp BP Pulse Ox 97.7 F 60 16 144/92 96 09/03/17 21:24 09/03/17 21:24 09/03/17 21:24 09/03/17 21:24 09/03/17 21:24 Internal Med - H&P Results - Labs CBC & Chem 7: 09/03/17 13:12 09/03/17 13:12 Labs: Cardiac Enzymes 09/03/17 Range/Units 22:03 Troponin I < 0.03 (< 0.04) ng/mL - Attending Attestation I examined this patient and my medical decision-making was reviewed with the Nurse Practioner, Blanca Quezada. I agree with the documented findings, disposition and treatment plan as described except to the extent set forth below. 44-year-old male patient with history of coronary artery disease, hypertension, hyperlipidemia, lung cancer presenting with chest pain. Left-sided. Intermittent. On examination patient does have left chest wall tenderness. Left heart catheter done last month showed 40% stenosis in LAD. Troponins negative. EKG shows normal sinus rhythm with borderline left axis deviation. Incomplete right bundle branch block. Chest pain: Likely costochondritis. However given 40% lesion in LAD and recurrent bouts of chest pain, will consult cardiology for recommendations. Treat symptomatically. Trend troponins. Telemetry.
[2017-09-04] MEDS: 0.9 % Sodium Chloride 1,000 ML IVC SCH (04:18)
[2017-09-04 05:43] LABS: Basophils # 0.1 K/mcL (0.0-0.2); Basophils % 0.7 %; Eosinophils # 0.2 K/mcL (0.0-0.6); Eosinophils % 2.8 %; Hematocrit 38.7 % (37.5-50.1); Hemoglobin 12.6 g/dL (12.9-16.9); Immature Granulocytes % 0.8 % (0-4); Lymphocytes # 3.4 K/mcL (0.6-4.6); Lymphocytes % 39.6 %; Mean Corpuscular HGB Conc 32.6 g/dL (31.6-35.5); Mean Corpuscular Hemoglobin 28.5 pg (28.0-33.3); Mean Corpuscular Volume 87.6 fL (83.0-100.0); Mean Platelet Volume 10.3 fL (9.4-12.4); Monocytes # 0.8 K/mcL (0.0-1.3); Monocytes % 9.3 %; Platelet Count 290 K/mcL (140-400); Red Blood Count 4.42 M/mcL (4.19-5.50); Red Cell Distribution Width 14.4 % (11.5-14.5); Segmented Neutrophils % 46.8 %
[2017-09-04 06:06] LABS: BUN/Creatinine Ratio 25 (6-26); Blood Urea Nitrogen 22 mg/dL (6-20); Calcium 8.4 mg/dL (8.6-10.3); Carbon Dioxide 27 mEq/L (23-29); Chloride 109 mEq/L (98-107); Chol/HDL Ratio 3.1 (0-4.9); Cholesterol 118 mg/dL (< 200); Glucose 79 mg/dL (70-105); HDL Cholesterol 38 mg/dL (40-59); LDL Cholesterol,Calculated 45 mg/dL (0-99); Magnesium 2.3 mg/dL (1.6-2.6); Osmolality,Calculated 292 (280-300); Potassium 4.4 mEq/L (3.5-5.1); Sodium 140 mEq/L (136-145); Triglycerides 174 mg/dL (< 150); eGFR For African Americans > 60 (> 60); eGFR For Non-African Americans > 60 (> 60)
[2017-09-04] MEDS ORDERED: *HR* Enoxaparin 40 MG/0.4 ML SYRINGE SQ SCH (07:00)
--- NOTE | 2017-09-04 08:25 | Electrocardiograph Report ---
[place] [id number] Test Date: 2017-09-03 Pat Name: Les Montana Department: 102 Room: 3B45 Gender: M Manager Recruitment: Margarito : 1960 Requested By: Steven Rios Order Number: [id number] Reading MD: Tonia Cabrera Measurements Intervals Welsh Rate: 94 P: 31 ID: [id number] QRS: -23 QRSD: 102 T: 4 QT: 350 QTc: 401 Interpretive Statements SINUS RHYTHM BORDERLINE LEFT AXIS DEVIATION [QRS AXIS < -20] INCOMPLETE RIGHT BUNDLE BRANCH BLOCK Electronically Signed On 09-04-2017 8:23:27 EST by Tonia Cabrera
[2017-09-04] MEDS ORDERED: Aspirin 81 MG TAB.CHEW PO SCH (09:00)
[2017-09-04] MEDS ORDERED: Ketorolac 30 MG/ML VIAL IVP ONE (11:53)
[2017-09-04] MEDS ORDERED: Benzonatate 100 MG CAPSULE PO PRN (11:55)
[2017-09-04] MEDS ORDERED: Budesonide/Formoterol 160/4.5 MDI IH SCH (12:00)
[2017-09-04 15:04] VITALS: BP 126/84
--- NOTE | 2017-09-04 15:47 | Discharge Summary ---
Date of Encounter: 09/04/17 Time of Encounter: 15:45 - Discharge Diagnosis (1) Atypical chest pain Priority: Primary Status: Acute Comments: 07/2017 [facility] with minimal, nonobstructive CAD. Evaluated by cardiology at that time who recommended medical management. Now presenting with chest pain that is reproducible on exam. Serial troponins negative, EKG with known RBBB, no acute ST changes. Suspect chest pain musculoskeletal as it was easily reproducible on exam. No further cardiac workup indicated at this time. Continue ASA. Continue Motrin for musculoskeletal discomfort. Follow-up with PCP N1 to 2 weeks (2) COPD (chronic obstructive pulmonary disease) Priority: Secondary Status: Chronic Comments: CXR with no acute process, CTA with no evidence of pulmonary embolism or acute pulmonary abnormality, no evidence of thoracic aortic aneurysm or dissection continue home medication regime includiing rescue inhaler and daily medications 6Minute walk test with no 02 requirements No wheeze on exam Qualifiers: COPD type: emphysema Emphysema type: unspecified Qualified Code(s): J43.9 - Emphysema, unspecified (3) HTN (hypertension) Priority: Secondary Status: Chronic Comments: blood pressure stable continue home medication regime Qualifiers: Hypertension type: essential hypertension Qualified Code(s): I10 - Essential (primary) hypertension - Discharge Medications Prescriptions: Aspirin Enteric Coated [Aspirin EC] 81 mg PO DAILY #30 tablet.dr Home Medications: Nitroglycerin [Nitrostat] 0.4 mg SL Q5M PRN 07/25/17 [History] Simvastatin [Zocor] 20 mg PO HS 07/25/17 [History] Albuterol Sulfate [Albuterol Inhaler] 1 puff IH Q4H PRN 08/09/17 [History] Budesonide/Formoterol 160/4.5 [Symbicort 160/4.5] 2 puff IH BIDR #1 hfa.aer.ad 08/09/17 [Rx] Citalopram [CeleXA] 20 mg PO DAILY #30 tablet 08/09/17 [Rx] Mirtazapine [Remeron] 15 mg PO HS #30 tablet 08/09/17 [Rx] Metoprolol [Lopressor] 50 mg PO BID 08/13/17 [History] Benzonatate [Tessalon] 100 mg PO TID PRN #21 capsule 08/21/17 [Rx] PredniSONE [Deltasone] 60 mg PO DAILY #5 tablet 08/21/17 [Rx] Acetaminophen [Tylenol] 1,000 mg PO TID #30 tablet 08/27/17 [Rx] Ibuprofen [Motrin] 800 mg PO Q8HR #30 tablet 08/27/17 [Rx] Ondansetron [Zofran] 8 mg PO Q8HR #9 tablet 08/27/17 [Rx] Aspirin Enteric Coated [Aspirin EC] 81 mg PO DAILY #30 tablet. 09/04/17 [Rx] Allergies/Adverse Reactions: 3 Allergy/AdvReac Type Severity Reaction Status Date / Time No Known Allergies Allergy Verified 09/03/17 19:04 Date of admission: 09/03/17 20:30 Primary care physician: PCP NONE Discharging clinician: Lorena Hernández Anticipated date of discharge: 09/04/17 - Patient Status Disposition: Home, Self-Care Condition: Good Functional capacity at discharge: independent ambulation Overall status at discharge: patient is progressing back to baseline - Discharge Instructions Follow Up With: Lacho Odonnell DO [Partnered Physician] - 09/13/17 10:00 am Kinjal Durham MD [Partnered Physician] - 09/19/17 11:30 am - Diet and Activity Activity: resume usual activities as tolerated Interval History: This is a 57-year-old patient who was admitted with intermittent chest pain that occurred at rest over the previous 2-3 days with one episode awaking him from sleep. He describes the pain as a sharp midsternal type pain radiating to his left arm. He has a history of CAD with cardiac catheterization in July 2017. He also complained of some exertional shortness of breath. A 6 minute walk test was completed with no oxygen needs during the study. He is difficult to evaluate with his response to palpitation of the chest wall seemingly out of proportion to physical findings Hospital course: Mr. Montana is a 57 year old male - Time Spent with Patient Total time spent providing and/or coordinating discharge services: Less than 30 minutes - Constitutional Vitals: Temp Pulse Resp BP Pulse Ox 97.9 F 72 15 126/84 98 09/04/17 15:02 09/04/17 15:02 09/04/17 15:02 09/04/17 15:02 09/04/17 15:02 General appearance: Present: A&O X 3, pleasant, no acute distress, answers questions appropriately - Head Head exam: Present: atraumatic, normocephalic - Eye Eye exam: Present: conjuntiva pink, sclera anicteric - Neck Neck exam general surgery: Present: supple, trachea midline. Absent: lymphadenopathy - Respiratory Respiratory exam: Present: chest wall tenderness, CTAB. Absent: accessory muscle use, rales, rhonchi, wheezes - Cardiovascular Cardiovascular exam: Present: RRR, +S1, +S2. Absent: diastolic murmur, gallop, rubs, systolic murmur - GI/Abdominal GI/Abdominal exam: Present: normal bowel sounds, soft, no peritoneal signs. Absent: distended, tenderness - Extremities Exam Extremities exam: Present: warm, radial pulses palpable and symmetrical. Absent : calf tenderness, cyanotic, pedal edema - Neurological Exam Neurological exam: Present: CN II-XII intact, oriented X3, no focal deficits. Absent: pronater drift, facial droop, speech deficit - Skin Skin exam: Present: dry, intact
[2017-09-04] MEDS ORDERED: Ibuprofen 800 MG TABLET PO SCH (16:00)
[2017-09-04] MEDS ORDERED: Mirtazapine 15 MG TABLET PO SCH (21:00)
== END 2017-09-04 18:47 | disposition home or self-care (01) ==
LOC: EMEROO 12:18 → 3BNU 12:18
PROVIDERS: ADMIT Internal Medicine; ATTEND Registered Nurse